=== PATIENT | male | born 1995 | race Caucasian/White ===

== ENCOUNTER 2019-06-25 10:07 | Inpatient (IN) | payer OTHER ==
[2019-06-25] MEDS ORDERED: ONDANSETRON HCL INJ/PF 4 MG/2 ML SDV IV ONE ×2 (10:23→13:17)
[2019-06-25] MEDS ORDERED: NORMAL SALINE 1000 ML 1,000 ML IV ONE (10:23)
--- NOTE | 2019-06-25 10:24 | ER Document Report ---
ED Medical Screen (RME) - General Chief Complaint: Bloody Stools Stated Complaint: BLOODY STOOLS Time Seen by Provider: 06/25/19 10:20 Primary Care Provider: MOSES TOLEDO DO [Primary Care Provider] - Follow up as needed - HPI Notes: 06/25/19 10:23 Patient is a 24-year-old male no significant past medical history who presents complaining of having light red blood in his stool since April with inte rmittent nausea, fevers, and abdominal pains. Patient states that he has some rectal discomfort, but no sharp pain in that area. Patient has never been seen for this yet. He does have some fatigue associated. Denies drug allergies. I have treated and performed a rapid initial assessment of this patient. A comprehensive ED assessment and evaluation of the patient, analysis of test results and completion of medical decision making process will be conducted by additional ED providers. PHYSICAL EXAMINATION: GENERAL: Well-appearing, well-nourished and in no acute distress. A&Ox4. Answers questions appropriately. Heart: Patient is tachycardic upon assessment otherwise RRR Abdomen: Limited exam, mild tenderness noted to the mid abdomen. - Related Data Allergies/Adverse Reactions: No Known Allergies Allergy (Verified 06/25/19 10:18) Physical Exam - Vital signs Vitals: Temp Pulse Resp BP Pulse Ox 99 F 135 H 18 127/75 H 95 06/25/19 10:06/25/19 10:06/25/19 10:06/25/19 10:09 06/25/19 10:09 Course - Vital Signs Vital signs: Temp Pulse Resp BP Pulse Ox 99 F 135 H 18 127/75 H 95 06/25/19 10:06/25/19 10:06/25/19 10:06/25/19 10:06/25/19 10:09 Doctor's Discharge - Discharge Referrals: MOSES TOLEDO DO [Primary Care Provider] - Follow up as needed
[2019-06-25 11:00] LABS: HEMATOCRIT 37.5 % (37.9-51.0); HEMOGLOBIN 13.8 g/dL (13.5-17.0); MEAN CORPUSCULAR HEMOGLOBIN 31.6 pg (27.0-33.4); MEAN CORPUSCULAR HGB CONC 36.9 g/dL (32.0-36.0); MEAN CORPUSCULAR VOLUME 86 fl (80-97); PLATELET COUNT 549 10^3/uL (150-450); RED BLOOD COUNT 4.37 10^6/uL (4.35-5.55); RED CELL DISTRIBUTION WIDTH 12.6 % (11.5-14.0); WHITE BLOOD COUNT 24.5 10^3/uL (4.0-10.5)
[2019-06-25 11:07] LABS: APPEARANCE,URINE SLIGHTLY-CLOUDY; BILIRUBIN,URINE SMALL (NEGATIVE); COLOR,URINE AMBER; GLUCOSE, URINE NEGATIVE (NEGATIVE); KETONES,URINE 20 mg/dL (NEGATIVE); PROTEIN,URINE 100 mg/dL (NEGATIVE); URINE SPECIFIC GRAVITY 1.032
[2019-06-25 11:20] LABS: ALBUMIN 3.5 g/dL (3.5-5.0); ALKALINE PHOSPHATASE 109 U/L (38-126); ANION GAP 10 (5-19); ASPARTATE AMINO TRANSFERASE 40 U/L (17-59); BILIRUBIN,DIRECT 0.1 mg/dL (0.0-0.4); BILIRUBIN,TOTAL 1.4 mg/dL (0.2-1.3); BLOOD UREA NITROGEN 9 mg/dL (7-20); CALCIUM 8.5 mg/dL (8.4-10.2); CARBON DIOXIDE 32 mmol/L (22-30); CHLORIDE 90 mmol/L (98-107); GLUCOSE 131 mg/dL (75-110); POTASSIUM 3.7 mmol/L (3.6-5.0)
[2019-06-25 11:30] LABS: ABSOLUTE LYMPHOCYTES# (MANUAL) 2.2 10^3/uL (0.5-4.7); ABSOLUTE MONOCYTES # (MANUAL) 2.2 10^3/uL (0.1-1.4); BAND NEUTROPHILS % (MANUAL) 3 % (3-5); BASOPHILS % (MANUAL) 0 % (0-2); EOSINOPHILS % (MANUAL) 0 % (0-6); LYMPHOCYTES % (MANUAL) 9 % (13-45); MONOCYTES % (MANUAL) 9 % (3-13); SEGMENTED NEUTROPHILS % (MAN) 79 % (42-78); TOTAL CELLS COUNTED 100
[2019-06-25 11:31] LABS: PLATELET COMMENT INCREASED; RBC MORPHOLOGY COMMENT NORMO-CYTIC/CHROMIC; TOXIC GRANULATION SLIGHT; TOXIC VACUOLATION PRESENT
[2019-06-25] MEDS ORDERED: RINGERS SOLUTION,LACTATED 1,000 ML IV ONE ×2 (13:14→16:21)
[2019-06-25] MEDS ORDERED: ERTAPENEM SODIUM INJ 1 GM VIAL IV ONE (13:16)
[2019-06-25] MEDS ORDERED: MORPHINE SULFATE 10 MG/ML INJ IV ONE (13:17)
--- NOTE | 2019-06-25 13:41 | RADIOLOGY REPORT (SQ) ---
EXAM DESCRIPTION: CHEST SINGLE VIEW COMPLETED DATE/TIME: 06/25/2019 1:24 pm REASON FOR STUDY: Congested cough COMPARISON: None. FINDINGS: One-view chest AP portable upright. Clear lungs. Normal cardiomediastinal silhouette. No acute or suspicious findings. No pneumothorax . TECHNICAL DOCUMENTATION: JOB ID: [id number] Reading location - IP/workstation name: [email or web address]
--- NOTE | 2019-06-25 15:13 | ER Document Report ---
Entered by VLADIMIR DUBON SCRIBE 06/25/19 2000 Acting as scribe for:SHIRLEY SANDOVAL MD ED General - General Chief Complaint: Bloody Stools Stated Complaint: BLOODY STOOLS Time Seen by Provider: 06/25/19 10:20 Primary Care Provider: MOSES TOLEDO DO [NO LOCAL MD] - Follow up as needed Mode of Arrival: Ambulatory Information source: Patient Notes: This 24-year-old male patient presents to the emergency department today with complaints of bloody stool for a few months. Patient states since April he has had all diarrhea, approximately 5-6 times a day. Patient states for the last few days he has felt generally weak with fevers and a cough. Patient is nauseated but denies vomiting. - Related Data Allergies/Adverse Reactions: No Known Allergies Allergy (Verified 06/25/19 10:18) Past Medical History - General Information source: Patient - Social History Smoking Status: Former Smoker Cigarette use (# per day): No Frequency of alcohol use: Occasional Drug Abuse: None Lives with: Spouse/Significant other Family History: Reviewed & Not Pertinent Patient has suicidal ideation: No Patient has homicidal ideation: No - Medical History Medical History: Negative Past Surgical History: Reports: Hx Inguinal Hernia - left, repaired. Review of Systems - Review of Systems Constitutional: See HPI, Fever, Weakness EENT: No symptoms reported Cardiovascular: No symptoms reported Respiratory: See HPI, Cough Gastrointestinal: See HPI, Nausea, Rectal bleeding. denies: Abdominal pain, Vomiting Genitourinary: No symptoms reported Male Genitourinary: No symptoms reported Musculoskeletal: No symptoms reported Skin: No symptoms reported Hematologic/Lymphatic: No symptoms reported Neurological/Psychological: No symptoms reported -: Yes All other systems reviewed and negative Physical Exam - Vital signs Vitals: Temp Pulse Resp BP Pulse Ox 99 F 135 H 18 127/75 H 95 06/25/19 10:09 06/25/19 10:09 06/25/19 10:09 06/25/19 10:06/25/19 10:09 Interpretation: Tachycardic, Febrile - General General appearance: Other - Seems a little drowsy. Looks quite fatigued. In distress: Mild - HEENT Head: Normocephalic, Atraumatic Eyes: Normal Pupils: PERRL Mucous membranes: Dry Pharynx: Normal Neck: Normal - Respiratory Respiratory status: No respiratory distress Breath sounds: Nonproductive cough, Rhonchi - Cardiovascular Rhythm: Regular, Tachycardia Heart sounds: Normal auscultation Murmur: No - Abdominal Inspection: Normal Bowel sounds: Normal Tenderness: Tender - Very tender in the lower abdomen with the right more tender than the left - Rectal Tenderness: Yes Hemorrhoids: None Notes: There is about a 1 mm round hole seen in the mucosa adjacent to the anus at 7:00 in the knee-chest position. I cannot tell if this is a fistula tract or not. The digital rectal exam shows some spasm at the anal sphincter and very tender t o insert the finger past the sphincter. There was no blood or stool noted. - Back Back: Normal - Extremities General upper extremity: Normal inspection General lower extremity: Normal inspection - Neurological Neuro grossly intact: Yes - Psychological Associated symptoms: Normal affect, Normal mood - Skin Skin Temperature: Warm Skin Moisture: Dry Skin Color: Normal Course - Vital Signs Vital signs: Temp Pulse Resp BP Pulse Ox 98.4 F 135 H 17 145/88 H 95 06/25/19 15:31 06/25/19 10:09 06/25/19 17:00 06/25/19 16:00 06/25/19 17:00 - Laboratory Result Diagrams: 06/25/19 10:32 06/25/19 10:32 Laboratory results interpreted by me: 06/25/19 06/25/19 06/25/19 10:32 10:32 10:32 WBC 24.5 H Hct 37.5 L MCHC 36.9 H Plt Count 549 H Seg Neuts % (Manual) 79 H Lymphocytes % (Manual) 9 L Abs Neuts (Manual) 20.1 H Abs Monocytes (Manual) 2.2 H Sodium 132.0 L Chloride 90 L Carbon Dioxide 32 H Glucose 131 H Total Bilirubin 1.4 H Lipase 17.7 L Urine Protein 100 H Urine Ketones 20 H Urine Bilirubin SMALL H Urine Urobilinogen 4.0 H Urine Ascorbic Acid 40 H Stool for White Cells 06/25/19 15:15 WBC Hct MCHC Plt Count Seg Neuts % (Manual) Lymphocytes % (Manual) Abs Neuts (Manual) Abs Monocytes (Manual) Sodium Chloride Carbon Dioxide Glucose Total Bilirubin Lipase Urine Protein Urine Ketones Urine Bilirubin Urine Urobilinogen Urine Ascorbic Acid Stool for White Cells MANY H - Diagnostic Test Radiology reviewed: Image reviewed, Reports reviewed - CT scan with IV and oral contrast shows a diffuse colitis with moderate wall thickening throughout the length of the colon and mild adjacent inflammatory changes with fluid-filled lumen. No free air or fluid collections identified. - Consults Dr. Arango Time consulted: 17:32 Consulted provider: will come to ER Discharge - Discharge Clinical Impression: Ulcerative colitis Qualifiers: Ulcerative colitis location: unspecified ulcerative colitis location Digestive disease complication type: with rectal bleeding Qualified Code(s): K51.911 - Ulcerative colitis, unspecified with rectal bleeding Leukocytosis Qualifiers: Leukocytosis type: bandemia Qualified Code(s): D72.825 - Bandemia Condition: Stable Disposition: ADMITTED INPATIENT Admitting Provider: Conchita (Hospitalist) Unit Admitted: Medical Floor Referrals: MOSES TOLEDO DO [NO LOCAL MD] - Follow up as needed Scribe Attestation: 06/25/19 17:38 I personally performed the services described in the documentation, reviewed and edited the documentation which was dictated to the scribe in my presence, and it accurately records my words and actions. I personally performed the services described in the documentation, reviewed and edited the documentation which was dictated to the scribe in my presence, and it accurately records my words and actions.
--- NOTE | 2019-06-25 17:23 | RADIOLOGY REPORT (SQ) ---
EXAM DESCRIPTION: CT ABD/PELVIS WITH IV ORAL COMPLETED DATE/TIME: 06/25/2019 4:43 pm REASON FOR STUDY: Leukocytosis, abdominal pain, diarrhea. COMPARISON: None. TECHNIQUE: CT scan of the abdomen and pelvis performed using helical scanning technique with dynamic intravenous contrast injection. No oral contrast. Images reviewed with lung, soft tissue, and bone w indows. Reconstructed coronal and sagittal MPR images reviewed. Delayed images for evaluation of the urinary system also acquired. All images stored on PACS. All CT scanners at this facility use dose modulation, iterative reconstruction, and/or weight based d osing when appropriate to reduce radiation dose to as low as reasonably achievable (ALARA). [facility]: Dose Right [facility]: CareDose [facility]: Dose Right [facility]: Teradose 4D [facility]: Startapp CONTRAST TYPE AND DOSE: contrast/concentration: Isovue 350.00 mg/ml; Total Contrast Delivered: 94.0 ml; Total Saline Delivered: 71.0 ml RENAL FUNCTION: GFR > 60. RADIATION DOSE: CT Rad equipment meets quality standard of care and radiation dose reduction techniq ues were employed. CTDIvol: 7.9 - 10.9 mGy. DLP: 1153 mGy-cm.. LIMITATIONS: None. FINDINGS: LOWER CHEST: No significant findings. LIVER: Normal size. No enhancing masses. No dilated ducts. SPLEEN: Normal size. No focal lesions. PANCREAS: No masses identified. No significant calcifications. No adjacent inflammation or peripancre atic fluid collections. Pancreatic duct not dilated. GALLBLADDER: No calcified stones. No inflammatory changes to suggest cholecystitis. ADRENAL GLANDS: No significant masses. RIGHT KIDNEY AND URETER: No cysts identified. No solid masses identified. No calcified stones. No hyd ronephrosis or hydroureter. LEFT KIDNEY AND URETER: No cysts identified. No solid masses identified. No calcified stones. No hydr onephrosis or hydroureter. AORTA AND VESSELS: No aneurysm. No dissection. Renal arteries, SMA, celiac without significant stenos is. RETROPERITONEUM: No bulky retroperitoneal adenopathy. BOWEL AND PERITONEAL CAVITY: Moderate wall thickening throughout the length of the colon with mild ad jacent inflammatory changes and fluid filled lumen. No free air or fluid collection identified. APPENDIX: Not visualized. PELVIS: No free fluid. Unremarkable bladder. ABDOMINAL WALL: No masses. No hernias. BONES: No acute findings. OTHER: No other significant finding. IMPRESSION: Moderate wall thickening throughout the length of the colon with mild adjacent inflammat ory changes and fluid filled lumen. No free air or fluid collection identified. TECHNICAL DOCUMENTATION: JOB ID: [id number] [place]-72 Quality ID # [id number]: Final reports with documentation of one or more dose reduction techniques (e.g., Au tomated exposure control, adjustment of the mA and/or kV according to patient size, use of iterative reconstruction technique) 2010 [employer]- All Rights Reserved Reading location - IP/workstation name: [email or web address]
[2019-06-25] MEDS ORDERED: ONDANSETRON HCL INJ/PF 4 MG/2 ML SDV IV PRN (18:10)
[2019-06-25] MEDS ORDERED: PROMETHAZINE HCL INJ 25 MG/1 ML VIAL IV PRN (18:10)
[2019-06-25] MEDS ORDERED: TEMAZEPAM 15 MG CAPSULE PO PRN (18:10)
[2019-06-25] MEDS ORDERED: IPRATROPIUM/ALBUTEROL 0.5-2.5 MG/3 ML AMPUL NEB PRN (18:10)
[2019-06-25] MEDS ORDERED: MORPHINE SULFATE 10 MG/ML INJ IV PRN (18:20)
--- NOTE | 2019-06-25 18:23 | PDOC H&P ---
History of Present Illness Admission Date/PCP: 06/25/19 18:07 History of Present Illness: JAKOB GARCIA is a 24 year old male with no significant past medical history presenting to ED complaining of abdominal pain associated with bloody diarrhea, fever and chills. Patient stated that he noticed bloody bowel was 2 months ago which coincided with a new protein supplement for the diarrhea sore associated with with lower abdominal pain. He is stating that did not make too much of it, but noted noticed that his abdominal pain was getting severe and his diarrhea was not resolving. He is also endorsing fever and chills however denies any nausea or vomiting. Abdominal pain is mainly in the lower abdomen, colicky, worse with movement, no alleviating factors, is not relieved by bowel movement or eating. He has not been to [facility] however recently traveled to [place] but does not remember if anybody has similar symptoms, denies having any exotic foods or trying any food, started on new dietary supplements 2 months ago which coincided with his bloody diarrheas, he is and monogamous, denies any rashes, joint pain or joint swelling, dysuria or any just genital discharge, oral ulcers or any vision changes. He denies any personal or family history of inflammatory bowel disease. Denies any shortness of breath, chest pain, headache, vision changes, rashes, numbness, tingling, or symptoms. In ED he was found to have significant leukocytosis and CT abdomen showed d iffuse colitis. Hospitalist was consulted for admission. Social History Lives with: Spouse/Significant other Smoking Status: Former Smoker Family History Family History: Reviewed & Not Pertinent Parental Family History Reviewed: Yes Children Family History Reviewed: Yes Sibling(s) Family History Reviewed.: Yes Medication/Allergy Home Medications: No Home Medications 06/25/19 Allergies/Adverse Reactions: No Known Allergies Allergy (Verified 06/25/19 10:18) Review of Systems Review of Systems: as per hpi Physical Exam Vital Signs: Temp Pulse Resp BP Pulse Ox 98.4 F 135 H 21 H 145/88 H 94 06/25/19 15:31 06/25/19 10:09 06/25/19 18:00 06/25/19 16:00 06/25/19 18:00 Intake & Output 06/24/19 06/25/19 06/26/19 06:59 06:59 06:59 Intake Total 1999 Balance 2000 Weight 82 kg General appearance: PRESENT: mild distress Head exam: PRESENT: atraumatic, normocephalic Respiratory exam: PRESENT: clear to auscultation elijah. ABSENT: rales, rhonchi, wheezes Cardiovascular exam: PRESENT: RRR. ABSENT: diastolic murmur, rubs, systolic murmur GI/Abdominal exam: PRESENT: guarding, normal bowel sounds, soft, tenderness. ABSENT: distended, mass, organolmegaly, rebound Neurological exam: PRESENT: alert, awake, oriented to person, oriented to place, oriented to time, oriented to situation, CN II-XII grossly intact. ABSENT: motor sensory deficit Skin exam: PRESENT: dry, intact, warm. ABSENT: cyanosis, rash Results Laboratory Results: 06/25/19 10:32 06/25/19 10:32 06/25/19 06/25/19 06/25/19 10:32 10:32 10:32 WBC 24.5 H RBC 4.37 Hgb 13.8 Hct 37.5 L MCV 86 MCH 31.6 MCHC 36.9 H RDW 12.6 Plt Count 549 H Seg Neutrophils % Not Reportable Sodium 132.0 L Potassium 3.7 Chloride 90 L Carbon Dioxide 32 H Anion Gap 10 BUN 9 Creatinine 0.74 Est GFR ( Amer) > 60 Glucose 131 H Lactic Acid Calcium 8.5 Total Bilirubin 1.4 H AST 40 Alkaline Phosphatase 109 Total Protein 7.0 Albumin 3.5 Lipase 17.7 L Urine Color Urine Appearance Urine pH Ur Specific [place] Urine Protein Urine Glucose (UA) Urine Ketones Urine Blood Urine RBC (Auto) Stool for White Cells Blood Type O POSITIVE Antibody Screen NEGATIVE 06/25/19 06/25/19 06/25/19 10:32 14:08 15:15 WBC RBC Hgb Hct MCV MCH MCHC RDW Plt Count Seg Neutrophils % Sodium Potassium Chloride Carbon Dioxide Anion Gap BUN Creatinine Est GFR ( Amer) Glucose Lactic Acid 1.3 Calcium Total Bilirubin AST Alkaline Phosphatase Total Protein Albumin Lipase Urine Color MARY ELLEN Urine Appearance SLIGHTLY-CLOUDY Urine pH 5.0 Ur Specific [place] 1.032 Urine Protein 100 H Urine Glucose (UA) NEGATIVE Urine Ketones 20 H Urine Blood NEGATIVE Urine RBC (Auto) 2 Stool for White Cells MANY H Blood Type Antibody Screen Impressions: Abdomen/Pelvis CT 06/25/19 13:15 IMPRESSION: Moderate wall thickening throughout the length of the colon with mild adjacent inflammatory changes and fluid filled lumen. No free air or fluid collection identified. Assessment and Plan - Diagnosis (1) Colitis Is this a current diagnosis for this admission?: Yes Plan: Given history and presentation this could very well be ulcerative colitis, cannot rule out infectious cause. Empiric broad-spectrum IV antibiotics, stool culture, stool ova and parasites, stool WBC, blood culture, ESR, CRP, stool calprotectin, vitamin D and folic acid level. (2) Dehydration Is this a current diagnosis for this admission?: Yes Plan: Due to #1. Aggressive volume resuscitation guided by volume status. (3) Diarrhea Qualifiers: Diarrhea type: unspecified type Qualified Code(s): R19.7 - Diarrhea, unspecified Is this a current diagnosis for this admission?: Yes Plan: Due to #1. Plan as per 1. (4) Abdominal pain Qualifiers: Abdominal location: lower abdomen, unspecified Qualified Code(s): R10.30 - Lower abdominal pain, unspecified Is this a current diagnosis for this admission?: Yes Plan: Due to #1. Plan as per #1. (5) Leukocytosis Qualifiers: Leukocytosis type: bandemia Qualified Code(s): D72.825 - Bandemia Is this a current diagnosis for this admission?: Yes Plan: Due to #1. Plan as per 1.
[2019-06-25] MEDS ORDERED: HYDRALAZINE HCL INJ/PF 20 MG/1 ML SDV IV PRN (18:33)
[2019-06-25] MEDS ORDERED: METOPROLOL TARTRATE PF/INJ 5 MG/5 ML SDV IV PRN (18:33)
[2019-06-25] MEDS: METHYLPREDNISOLONE INJ 40 MG/1 ML SDV IV SCH (18:47)
[2019-06-25] MEDS: METRONIDAZOLE 500 MG/NS RTU 500 MG/100 ML RTUPB IV SCH ×5 (18:47→23:11)
[2019-06-25] MEDS: MORPHINE SULFATE 10 MG/ML INJ IV PRN ×2 (18:59→22:06)
[2019-06-25] MEDS: ACETAMINOPHEN 325 MG TABLET PO PRN (19:05)
[2019-06-25 19:47] LABS: IRON(TIBC) 18.3 ug/dL (49-181)
[2019-06-25 19:49] LABS: ABSOLUTE RETICS # 0.088 10^6/uL (0.028-0.122); RETICULOCYTE COUNT (AUTO) 1.96 % (0.66-2.85)
[2019-06-25 20:30] LABS: C DIFFICILE GDH NEGATIVE (NEGATIVE)
[2019-06-25 21:05] LABS: A TYPE INFLUENZA AG NEGATIVE (NEGATIVE); B INFLUENZA AG NEGATIVE (NEGATIVE)
[2019-06-25] MEDS: POTASSI CL 20 MEQ/D5NS 1L 20 MEQ/1,000 ML RTUINJ IV PRN (21:10)
[2019-06-26] MEDS: METHYLPREDNISOLONE INJ 40 MG/1 ML SDV IV SCH ×3 (02:02→18:17)
[2019-06-26] MEDS: MORPHINE SULFATE 10 MG/ML INJ IV PRN ×4 (05:17→22:03)
[2019-06-26] MEDS: METRONIDAZOLE 500 MG/NS RTU 500 MG/100 ML RTUPB IV SCH ×4 (05:18→23:29)
[2019-06-26] MEDS: PANTOPRAZOLE SODIUM 40 MG TABLET.DR PO SCH ×2 (05:18→18:17)
[2019-06-26] MEDS: POTASSI CL 20 MEQ/D5NS 1L 20 MEQ/1,000 ML RTUINJ IV PRN ×2 (05:23→18:27)
[2019-06-26 06:05] LABS: HEMATOCRIT 33.7 % (37.9-51.0); HEMOGLOBIN 11.9 g/dL (13.5-17.0); MEAN CORPUSCULAR HEMOGLOBIN 30.4 pg (27.0-33.4); MEAN CORPUSCULAR HGB CONC 35.4 g/dL (32.0-36.0); MEAN CORPUSCULAR VOLUME 86 fl (80-97); PLATELET COUNT 454 10^3/uL (150-450); RED BLOOD COUNT 3.93 10^6/uL (4.35-5.55); RED CELL DISTRIBUTION WIDTH 12.6 % (11.5-14.0); WHITE BLOOD COUNT 16.8 10^3/uL (4.0-10.5)
[2019-06-26 06:28] LABS: ALBUMIN 2.6 g/dL (3.5-5.0); ALKALINE PHOSPHATASE 81 U/L (38-126); ANION GAP 6 (5-19); ASPARTATE AMINO TRANSFERASE 30 U/L (17-59); BILIRUBIN,DIRECT 0.1 mg/dL (0.0-0.4); BILIRUBIN,TOTAL 0.6 mg/dL (0.2-1.3); BLOOD UREA NITROGEN 6 mg/dL (7-20); CALCIUM 7.6 mg/dL (8.4-10.2); CARBON DIOXIDE 30 mmol/L (22-30); CHLORIDE 99 mmol/L (98-107); GLUCOSE 175 mg/dL (75-110); POTASSIUM 4.1 mmol/L (3.6-5.0); TOTAL PROTEIN 5.7 g/dL (6.3-8.2)
[2019-06-26] MEDS: FERROUS SULFATE 325 MG TABLET PO SCH (10:25)
[2019-06-26] MEDS: CHOLECALCIFEROL (D3) 1,000 UNIT (25 MCG) TABLET PO SCH (10:25)
[2019-06-26] MEDS: CEFTRIAXONE 2 GM/D5W RTU 2 GM/50 ML RTUPB IV SCH (10:26)
--- NOTE | 2019-06-26 10:43 | PDOC PROGRESS REPORT ---
Subjective Progress Note for:: 06/26/19 - ' Subjective:: JAKOB GARCIA is a 24 year old male with no significant past medical history presenting to ED complaining of abdominal pain associated with bloody diarrhea, fever and chills. Patient stated that he noticed bloody bowel was 2 months ago which coincided with a new protein supplement for the diarrhea sore associated with with lower abdominal pain. He is stating that did not make too much of it, but noted noticed that his abdominal pain was getting severe and his diarrhea was not resolving. He is also endorsing fever and chills however denies any nausea or vomiting. Abdominal pain is mainly in the lower abdomen, colicky, worse with movement, no alleviating factors, is not relieved by bowel movement or eating. He has not been to [facility] however recently traveled to [place] but does not remember if anybody has similar symptoms, denies having any exotic foods or trying any food, started on new dietary supplements 2 months ago which coincided with his bloody diarrheas, he is and monogamous, denies any rashes, joint pain or joint swelling, dysuria or any just genital discharge, oral ulcers or any vision changes. He denies any personal or family history of inflammatory bowel disease. Denies any shortness of breath, chest pain, headache, vision changes, rashes, numbness, tingling, or symptoms. In ED he was found to have significant leukocytosis and CT abdomen showed diffuse colitis. Hospitalist was consulted for admission. 06/26/2019. No acute events overnight. Patient endorsing some improvement of his abdominal pain, still having bloody diarrhea, denies any chest pain, nausea, vomiting, fever or any shortness of breath. Reason For Visit: COLITIS,DEHYDRATION Physical Exam Vital Signs: Temp Pulse Resp BP Pulse Ox 97.7 F 107 H 18 151/84 H 95 06/26/19 08:06 06/26/19 08:06 06/26/19 08:06 06/26/19 08:06 06/26/19 08:06 Intake & Output 06/25/19 06/26/19 06/27/19 06:59 06:59 06:59 Intake Total 4300 Balance 4300 Weight 84.1 kg General appearance: PRESENT: no acute distress, well-developed, well-nourished Head exam: PRESENT: atraumatic, normocephalic Respiratory exam: PRESENT: clear to auscultation elijah. ABSENT: rales, rhonchi, wheezes Cardiovascular exam: PRESENT: RRR. ABSENT: diastolic murmur, rubs, systolic murmur GI/Abdominal exam: PRESENT: normal bowel sounds, soft, tenderness. ABSENT: distended, guarding, mass, organolmegaly, rebound Neurological exam: PRESENT: alert, awake, oriented to person, oriented to place, oriented to time, oriented to situation, CN II-XII grossly intact. ABSENT: motor sensory deficit Results Laboratory Results: 06/26/19 05:11 06/26/19 05:11 06/25/19 06/25/19 06/25/19 10:32 10:32 10:32 WBC 24.5 H RBC 4.37 Hgb 13.8 Hct 37.5 L MCV 86 MCH 31.6 MCHC 36.9 H RDW 12.6 Plt Count 549 H Seg Neutrophils % Not Reportable Retic Count (auto) Sodium 132.0 L Potassium 3.7 Chloride 90 L Carbon Dioxide 32 H Anion Gap 10 BUN 9 Creatinine 0.74 Est GFR ( Amer) > 60 Glucose 131 H Lactic Acid Calcium 8.5 Magnesium Iron TIBC % Saturation Ferritin Total Bilirubin 1.4 H AST 40 Alkaline Phosphatase 109 C-Reactive Protein Total Protein 7.0 Albumin 3.5 Lipase 17.7 L Vitamin B12 Folate TSH Urine Color Urine Appearance Urine pH Ur Specific [place] Urine Protein Urine Glucose (UA) Urine Ketones Urine Blood Urine RBC (Auto) Stool for White Cells Blood Type O POSITIVE Antibody Screen NEGATIVE 06/25/19 06/25/19 06/25/19 10:32 10:32 10:32 WBC RBC Hgb Hct MCV MCH MCHC RDW Plt Count Seg Neutrophils % Retic Count (auto) 1.96 Sodium Potassium Chloride Carbon Dioxide Anion Gap BUN Creatinine Est GFR ( Amer) Glucose Lactic Acid Calcium Magnesium Iron TIBC % Saturation Ferritin Total Bilirubin AST Alkaline Phosphatase C-Reactive Protein 74.0 H Total Protein Albumin Lipase Vitamin B12 Folate TSH Urine Color MARY ELLEN Urine Appearance SLIGHTLY-CLOUDY Urine pH 5.0 Ur Specific [place] 1.032 Urine Protein 100 H Urine Glucose (UA) NEGATIVE Urine Ketones 20 H Urine Blood NEGATIVE Urine RBC (Auto) 2 Stool for White Cells Blood Type Antibody Screen 06/25/19 06/25/19 06/25/19 10:32 14:08 15:15 WBC RBC Hgb Hct MCV MCH MCHC RDW Plt Count Seg Neutrophils % Retic Count (auto) Sodium Potassium Chloride Carbon Dioxide Anion Gap BUN Creatinine Est GFR ( Amer) Glucose Lactic Acid 1.3 Calcium Magnesium Iron 18.3 L TIBC 183 L % Saturation 10 Ferritin 221.00 Total Bilirubin AST Alkaline Phosphatase C-Reactive Protein Total Protein Albumin Lipase Vitamin B12 958.0 H Folate 18.30 TSH Urine Color Urine Appearance Urine pH Ur Specific [place] Urine Protein Urine Glucose (UA) Urine Ketones Urine Blood Urine RBC (Auto) Stool for White Cells MANY H Blood Type Antibody Screen 06/25/19 06/26/19 06/26/19 15:15 05:11 05:11 WBC 16.8 H RBC 3.93 L Hgb 11.9 L Hct 33.7 L MCV 86 MCH 30.4 MCHC 35.4 RDW 12.6 Plt Count 454 H Seg Neutrophils % Retic Count (auto) Sodium 135.4 L Potassium 4.1 Chloride 99 Carbon Dioxide 30 Anion Gap 6 BUN 6 L Creatinine 0.49 L Est GFR ( Amer) > 60 Glucose 175 H Lactic Acid Calcium 7.6 L Magnesium 2.4 H Iron TIBC % Saturation Ferritin Total Bilirubin 0.6 AST 30 Alkaline Phosphatase 81 C-Reactive Protein Total Protein 5.7 L Albumin 2.6 L Lipase Vitamin B12 Folate TSH Urine Color Urine Appearance Urine pH Ur Specific [place] Urine Protein Urine Glucose (UA) Urine Ketones Urine Blood Urine RBC (Auto) Stool for White Cells Cancelled Blood Type Antibody Screen 06/26/19 05:11 WBC RBC Hgb Hct MCV MCH MCHC RDW Plt Count Seg Neutrophils % Retic Count (auto) Sodium Potassium Chloride Carbon Dioxide Anion Gap BUN Creatinine Est GFR ( Amer) Glucose Lactic Acid Calcium Magnesium Iron TIBC % Saturation Ferritin Total Bilirubin AST Alkaline Phosphatase C-Reactive Protein Total Protein Albumin Lipase Vitamin B12 Folate TSH 0.71 Urine Color Urine Appearance Urine pH Ur Specific [place] Urine Protein Urine Glucose (UA) Urine Ketones Urine Blood Urine RBC (Auto) Stool for White Cells Blood Type Antibody Screen Impressions: Abdomen/Pelvis CT 06/25/19 13:15 IMPRESSION: Moderate wall thickening throughout the length of the colon with mild adjacent inflammatory changes and fluid filled lumen. No free air or fluid collection identified. Assessment and Plan - Diagnosis (1) Colitis Is this a current diagnosis for this admission?: Yes Plan: Mild improvement. Still having bloody diarrhea. Given history and presentation this could very well be ulcerative colitis, cannot rule out infectious cause. ESR 54. CRP 74. B12 958. Vitamin D less than 12.8. Stool white blood cells many. Stool occult positive. C. difficile negative. HIV negative. Influenza A/B negative. Day 2 IV antibiotics. Day 2 IV metronidazole. Day 2 IV ceftriaxone. Day 2 IV steroids. Pending stool culture, stool ova and parasites, blood culture, stool calprotectin (2) Dehydration Is this a current diagnosis for this admission?: Yes Plan: Appears euvolemic. Continue volume resuscitation guided by volume status. (3) Diarrhea Qualifiers: Diarrhea type: unspecified type Qualified Code(s): R19.7 - Diarrhea, unspecified Is this a current diagnosis for this admission?: Yes Plan: Mild improvement. Plan as per #1. (4) Abdominal pain Qualifiers: Abdominal location: lower abdomen, unspecified Qualified Code(s): R10.30 - Lower abdominal pain, unspecified Is this a current diagnosis for this admission?: Yes Plan: Improving. Plan as per #1. (5) Leukocytosis Qualifiers: Leukocytosis type: bandemia Qualified Code(s): D72.825 - Bandemia Is this a current diagnosis for this admission?: Yes Plan: Due to #1. Plan as per 1.
[2019-06-27] MEDS: METHYLPREDNISOLONE INJ 40 MG/1 ML SDV IV SCH ×3 (01:08→17:46)
[2019-06-27] MEDS: PANTOPRAZOLE SODIUM 40 MG TABLET.DR PO SCH ×2 (05:30→17:46)
[2019-06-27] MEDS: METRONIDAZOLE 500 MG/NS RTU 500 MG/100 ML RTUPB IV SCH ×4 (05:31→23:05)
[2019-06-27] MEDS: POTASSI CL 20 MEQ/D5NS 1L 20 MEQ/1,000 ML RTUINJ IV PRN ×2 (05:31→15:38)
[2019-06-27] MEDS: MORPHINE SULFATE 10 MG/ML INJ IV PRN ×4 (05:35→23:05)
[2019-06-27 06:20] LABS: HEMOGLOBIN 13.4 g/dL (13.5-17.0); MEAN CORPUSCULAR HEMOGLOBIN 30.4 pg (27.0-33.4); MEAN CORPUSCULAR HGB CONC 35.2 g/dL (32.0-36.0); MEAN CORPUSCULAR VOLUME 87 fl (80-97); PLATELET COUNT 596 10^3/uL (150-450); RED BLOOD COUNT 4.39 10^6/uL (4.35-5.55); RED CELL DISTRIBUTION WIDTH 12.4 % (11.5-14.0); WHITE BLOOD COUNT 20.6 10^3/uL (4.0-10.5)
[2019-06-27 06:37] LABS: ANION GAP 8 (5-19); BLOOD UREA NITROGEN 7 mg/dL (7-20); CALCIUM 8.4 mg/dL (8.4-10.2); CARBON DIOXIDE 28 mmol/L (22-30); CHLORIDE 102 mmol/L (98-107); GLUCOSE 145 mg/dL (75-110); POTASSIUM 4.6 mmol/L (3.6-5.0)
[2019-06-27] MEDS: FERROUS SULFATE 325 MG TABLET PO SCH (10:23)
[2019-06-27] MEDS: CHOLECALCIFEROL (D3) 1,000 UNIT (25 MCG) TABLET PO SCH (10:24)
[2019-06-27] MEDS: CEFTRIAXONE 2 GM/D5W RTU 2 GM/50 ML RTUPB IV SCH (10:25)
--- NOTE | 2019-06-27 11:09 | PDOC PROGRESS REPORT ---
Subjective Progress Note for:: 06/27/19 Subjective:: JAKOB GARCIA is a 24 year old male with no significant past medical history presenting to ED complaining of abdominal pain associated with bloody diarrhea, fever and chills. Patient stated that he noticed bloody bowel was 2 months ago which coincided with a new protein supplement for the diarrhea sore associated with with lower abdominal pain. He is stating that did not make too much of it, but noted noticed that his abdominal pain was getting severe and his diarrhea was not resolving. He is also endorsing fever and chills however denies any nausea or vomiting. Abdominal pain is mainly in the lower abdomen, colicky, worse with movement, no alleviating factors, is not relieved by bowel movement or eating. He has not been to [facility] however recently traveled to [place] but does not remember if anybody has similar symptoms, denies having any exotic foods or trying any food, started on new dietary supplements 2 months ago which coincided with his bloody diarrheas, he is and monogamous, denies any rashes, joint pain or joint swelling, dysuria or any just genital discharge, oral ulcers or any vision changes. He denies any personal or family history of inflammatory bowel disease. Denies any shortness of breath, chest pain, headache, vision changes, rashes, numbness, tingling, or symptoms. In ED he was found to have significant leukocytosis and CT abdomen showed diffuse colitis. Hospitalist was consulted for admission. 06/26/2019. No acute events overnight. Patient endorsing some improvement of his abdominal pain, still having bloody diarrhea, denies any chest pain, nausea, vomiting, fever or any shortness of breath. 06/27/2019. Silk persistent diarrhea however improved since admission, abdominal pain has resolved, p.o. tolerant, denies any fever, chills, nausea, vomiting, urinary symptoms. Reason For Visit: COLITIS,DEHYDRATION Physical Exam Vital Signs: Temp Pulse Resp BP Pulse Ox 98.0 F 98 16 133/85 H 96 06/27/19 09:14 06/27/19 09:14 06/27/19 09:14 06/27/19 09:14 06/27/19 09:14 Intake & Output 06/26/19 06/27/19 06/28/19 06:59 06:59 06:59 Intake Total 4300 3860 Balance 4300 3860 Weight 84.1 kg 88.8 kg General appearance: PRESENT: no acute distress, well-developed, well-nourished Head exam: PRESENT: atraumatic, normocephalic Respiratory exam: PRESENT: clear to auscultation elijah. ABSENT: rales, rhonchi, wheezes Cardiovascular exam: PRESENT: RRR. ABSENT: diastolic murmur, rubs, systolic murmur GI/Abdominal exam: PRESENT: normal bowel sounds, soft. ABSENT: distended, guarding, mass, organolmegaly, rebound, tenderness Extremities exam: PRESENT: full ROM. ABSENT: calf tenderness, clubbing, pedal edema Neurological exam: PRESENT: alert, awake, oriented to person, oriented to place, oriented to time, oriented to situation, CN II-XII grossly intact. ABSENT: motor sensory deficit Results Laboratory Results: 06/27/19 05:31 06/27/19 05:31 06/27/19 06/27/19 05:31 05:31 WBC 20.6 H RBC 4.39 Hgb 13.4 L Hct 38.0 MCV 87 MCH 30.4 MCHC 35.2 RDW 12.4 Plt Count 596 H Sodium 137.5 Potassium 4.6 Chloride 102 Carbon Dioxide 28 Anion Gap 8 BUN 7 Creatinine 0.53 Est GFR ( Amer) > 60 Glucose 145 H Calcium 8.4 06/25/19 10:27 Clean Catch Midstream Urine Culture - Final NO GROWTH 2 DAYS 06/25/19 15:15 Stool - Stool - Final 06/25/19 15:15 Stool - Stool Stool Culture - Final NO SALMONELLA, SHIGELLA, CAMPYLOBACTER, OR E.COLI 0157 RECOVERED. NEGATIVE FOR SHIGA TOXINS 1&2. Impressions: Abdomen/Pelvis CT 06/25/19 13:15 IMPRESSION: Moderate wall thickening throughout the length of the colon with mild adjacent inflammatory changes and fluid filled lumen. No free air or fluid collection identified. Assessment and Plan - Diagnosis (1) Colitis Is this a current diagnosis for this admission?: Yes Plan: Moderate improvement. Still having bloody diarrhea. Given history and presentation this could very well be ulcerative colitis, cannot rule out infectious cause. ESR 54. CRP 74. B12 958. Vitamin D less than 12.8. Stool white blood cells many. Stool occult positive. C. difficile negative. HIV negative. Influenza A/B negative. Day 3 IV antibiotics. Day 3 IV metronidazole. Day 3 IV ceftriaxone. Day 3 IV steroids. Pending stool culture, stool ova and parasites, blood culture, stool calprotectin (2) Dehydration Is this a current diagnosis for this admission?: Yes Plan: Volume replete. Encourage p.o. intake. Continue volume resuscitation guided by volume status. (3) Diarrhea Qualifiers: Diarrhea type: unspecified type Qualified Code(s): R19.7 - Diarrhea, unspecified Is this a current diagnosis for this admission?: Yes Plan: Mild improvement. Plan as per #1. (4) Abdominal pain Qualifiers: Abdominal location: lower abdomen, unspecified Qualified Code(s): R10.30 - Lower abdominal pain, unspecified Is this a current diagnosis for this admission?: Yes Plan: Improving. Plan as per #1. (5) Leukocytosis Qualifiers: Leukocytosis type: bandemia Qualified Code(s): D72.825 - Bandemia Is this a current diagnosis for this admission?: Yes Plan: Due to #1. Plan as per 1.
[2019-06-28] MEDS: ACETAMINOPHEN 325 MG TABLET PO PRN ×2 (01:51→08:16)
[2019-06-28] MEDS: POTASSI CL 20 MEQ/D5NS 1L 20 MEQ/1,000 ML RTUINJ IV PRN (01:51)
[2019-06-28] MEDS: METHYLPREDNISOLONE INJ 40 MG/1 ML SDV IV SCH ×2 (01:51→10:02)
[2019-06-28] MEDS: MORPHINE SULFATE 10 MG/ML INJ IV PRN ×2 (04:05→10:00)
[2019-06-28] MEDS: METRONIDAZOLE 500 MG/NS RTU 500 MG/100 ML RTUPB IV SCH ×2 (05:37→11:29)
[2019-06-28] MEDS: PANTOPRAZOLE SODIUM 40 MG TABLET.DR PO SCH (05:37)
[2019-06-28 05:45] LABS: HEMATOCRIT 30.4 % (37.9-51.0); MEAN CORPUSCULAR HEMOGLOBIN 30.7 pg (27.0-33.4); MEAN CORPUSCULAR HGB CONC 35.3 g/dL (32.0-36.0); MEAN CORPUSCULAR VOLUME 87 fl (80-97); PLATELET COUNT 558 10^3/uL (150-450); RED CELL DISTRIBUTION WIDTH 12.6 % (11.5-14.0)
[2019-06-28 05:52] LABS: HEMOGLOBIN 10.7 g/dL (13.5-17.0)
[2019-06-28 06:03] LABS: ALBUMIN 2.3 g/dL (3.5-5.0); ALKALINE PHOSPHATASE 71 U/L (38-126); ANION GAP 6 (5-19); ASPARTATE AMINO TRANSFERASE 66 U/L (17-59); BILIRUBIN,TOTAL 0.2 mg/dL (0.2-1.3); BLOOD UREA NITROGEN 8 mg/dL (7-20); CALCIUM 7.2 mg/dL (8.4-10.2); CARBON DIOXIDE 26 mmol/L (22-30); CHLORIDE 104 mmol/L (98-107); GLUCOSE 135 mg/dL (75-110); TOTAL PROTEIN 4.8 g/dL (6.3-8.2)
[2019-06-28 06:51] LABS: ABSOLUTE LYMPHOCYTES# (MANUAL) 0.9 10^3/uL (0.5-4.7); ABSOLUTE MONOCYTES # (MANUAL) 1.5 10^3/uL (0.1-1.4); BAND NEUTROPHILS % (MANUAL) 4 % (3-5); BASOPHILS % (MANUAL) 0 % (0-2); EOSINOPHILS % (MANUAL) 0 % (0-6); LYMPHOCYTES % (MANUAL) 6 % (13-45); MONOCYTES % (MANUAL) 10 % (3-13); SEGMENTED NEUTROPHILS % (MAN) 80 % (42-78); TOTAL CELLS COUNTED 100
[2019-06-28 06:53] LABS: OVALOCYTES SLIGHT; PLATELET COMMENT INCREASED; POLYCHROMASIA SLIGHT
[2019-06-28] MEDS: CHOLECALCIFEROL (D3) 1,000 UNIT (25 MCG) TABLET PO SCH (09:59)
[2019-06-28] MEDS: FERROUS SULFATE 325 MG TABLET PO SCH (10:00)
[2019-06-28] MEDS: CEFTRIAXONE 2 GM/D5W RTU 2 GM/50 ML RTUPB IV SCH (10:01)
[2019-06-28 10:17] VITALS: BP 138/77
--- NOTE | 2019-06-28 17:40 | PDOC DISCHARGE SUMMARY ---
Impression - Admit/DC Date/PCP Admission Date/Primary Care Provider: 06/25/19 18:07 Discharge Date: 06/28/19 - Discharge Diagnosis (1) Colitis Is this a current diagnosis for this admission?: Yes (2) Dehydration Is this a current diagnosis for this admission?: Yes (3) Diarrhea Is this a current diagnosis for this admission?: Yes (4) Abdominal pain Is this a current diagnosis for this admission?: Yes (5) Leukocytosis Is this a current diagnosis for this admission?: Yes - Additional Information Discharge Diet: As Tolerated Referrals: MOSES TOLEDO DO [NO LOCAL MD] - 07/08/19 4:00 pm Prescriptions: Prednisone [Deltasone 5 mg Tablet] 5 mg PO DAILY 74 Days #148 tablet Ferrous Sulfate [Feosol 325 mg Tablet] 325 mg PO DAILY 30 Days #30 tab Metronidazole [Flagyl 500 mg Tablet] 500 mg PO Q8 5 Days #15 tablet Levofloxacin [Levaquin 500 mg Tablet] 500 mg PO DAILY 5 Days #5 tablet Magnesium Oxide [Mag-Oxide Magnesium] 400 mg PO DAILY 7 Days #14 tablet Potassium Chloride 40 meq PO DAILY 7 Days #14 tablet.er Cholecalciferol (Vitamin D3) [Vitamin D3] 2,000 unit PO DAILY 30 Days #30 tablet Home Medications: Cholecalciferol (Vitamin D3) [Vitamin D3] 2,000 unit PO DAILY 30 Days #30 tablet 06/28/19 Ferrous Sulfate [Feosol 325 mg Tablet] 325 mg PO DAILY 30 Days #30 tab 06/28/19 Levofloxacin [Levaquin 500 mg Tablet] 500 mg PO DAILY 5 Days #5 tablet 06/28/19 Magnesium Oxide [Mag-Oxide Magnesium] 400 mg PO DAILY 7 Days #14 tablet 06/28/19 Metronidazole [Flagyl 500 mg Tablet] 500 mg PO Q8 5 Days #15 tablet 06/28/19 Potassium Chloride 40 meq PO DAILY 7 Days #14 tablet.er 06/28/19 Prednisone [Deltasone 5 mg Tablet] 5 mg PO DAILY 74 Days #148 tablet 06/28/19 History of Present Illiness History of Present Illness: JAKOB GARCIA is a 24 year old male with no significant past medical history presenting to ED complaining of abdominal pain associated with bloody diarrhea, fever and chills. Patient stated that he noticed bloody bowel was 2 months ago which coincided with a new protein supplement for the diarrhea sore associated with with lower abdominal pain. He is stating that did not make too much of it, but noted noticed that his abdominal pain was getting severe and his diarrhea was not resolving. He is also endorsing fever and chills however denies any nausea or vomiting. Abdominal pain is mainly in the lower abdomen, colicky, worse with movement, no alleviating factors, is not relieved by bowel movement or eating. He has not been to [facility] however recently traveled to [place] but does not remember if anybody has similar symptoms, denies having any exotic foods or trying any food, started on new dietary supplements 2 months ago which coincided with his bloody diarrheas, he is and monogamous, denies any rashes, joint pain or joint swelling, dysuria or any just genital discharge, oral ulcers or any vision changes. He denies any personal or family history of inflammatory bowel disease. Denies any shortness of breath, chest pain, headache, vision changes, rashes, numbness, tingling, or symptoms. In ED he was found to have significant leukocytosis and CT abdomen showed diffuse colitis. Hospitalist was consulted for admission. Hospital Course Hospital Course: (1) Colitis Moderate improvement. Abdominal pain resolved. Had one bowel movement in the last 24 hours. Given history and presentation this could very well be ulcerative colitis, cannot rule out infectious cause. ESR 54. CRP 74. B12 958. Vitamin D less than 12.8. Stool white blood cells many. Stool occult positive. C. difficile negative. HIV negative. Influenza A/B negative. Stool culture negative. Ova and parasite negative. Received 4 days of IV antibiotics. Received 4 days of IV metronidazole. Received 4 days of IV ceftriaxone. Received 4 days of IV steroids. Cultures negative. Pending stool calprotectin Discharged on p.o. metronidazole and levofloxacin for another 5 days. Discharge on a tapered dose of p.o. steroids. Discharged on supplemental vitamin D and ferrous sulfate. 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 Patient was advised if his symptoms did not resolve to come back to ED. (2) Dehydration Volume replete. Encourage p.o. intake. Continue volume resuscitation guided by volume status. (3) Diarrhea Moderate improvement had one bowel movement the last 24 hours. Plan as per #1. (4) Abdominal pain Resolved. Plan as per #1. (5) Leukocytosis Improved. However patient still had leukocytosis which could be due to IV steroids. Afebrile at the time of discharge. Plan as per 1. Patient was advised to stay another day given his leukocytosis but very anxious to leave. Patient was advised to come back to ED if he becomes symptomatic. Physical Exam Vital Signs: Temp Pulse Resp BP Pulse Ox 97.6 F 89 12 138/77 H 95 06/28/19 14:27 06/28/19 14:27 06/28/19 14:27 06/28/19 14:27 06/28/19 14:27 Intake & Output 06/27/19 06/28/19 06/29/19 06:59 06:59 06:59 Intake Total 3860 4076 1390 Balance 3860 4076 1390 Weight 88.8 kg 90.1 kg General appearance: PRESENT: no acute distress, well-developed, well-nourished Head exam: PRESENT: atraumatic, normocephalic Respiratory exam: PRESENT: clear to auscultation elijah. ABSENT: rales, rhonchi, wheezes Cardiovascular exam: PRESENT: RRR. ABSENT: diastolic murmur, rubs, systolic murmur GI/Abdominal exam: PRESENT: normal bowel sounds, soft. ABSENT: distended, guarding, mass, organolmegaly, rebound, tenderness Neurological exam: PRESENT: alert, awake, oriented to person, oriented to place, oriented to time, oriented to situation, CN II-XII grossly intact. ABSENT: motor sensory deficit Results Laboratory Results: WBC 15.0 10^3/uL (4.0-10.5) H 06/28/19 04:56 RBC 3.50 10^6/uL (4.35-5.55) L 06/28/19 04:56 Hgb 10.7 g/dL (13.5-17.0) L D 06/28/19 04:56 Hct 30.4 % (37.9-51.0) L 06/28/19 04:56 MCV 87 fl (80-97) 06/28/19 04:56 MCH 30.7 pg (27.0-33.4) 06/28/19 04:56 MCHC 35.3 g/dL (32.0-36.0) 06/28/19 04:56 RDW 12.6 % (11.5-14.0) 06/28/19 04:56 Plt Count 558 10^3/uL (150-450) H 06/28/19 04:56 Lymph % (Auto) Not Reportable 06/28/19 04:56 [place] % (Auto) Not Reportable 06/28/19 04:56 Eos % (Auto) Not Reportable 06/28/19 04:56 Baso % (Auto) Not Reportable 06/28/19 04:56 Reticulocyte # 0.088 10^6/uL (0.028-0.122) 06/25/19 10:32 Absolute Neuts (auto) Not Reportable 06/28/19 04:56 Absolute Lymphs (auto) Not Reportable 06/28/19 04:56 Absolute Monos (auto) Not Reportable 06/28/19 04:56 Absolute Eos (auto) Not Reportable 06/28/19 04:56 Absolute Basos (auto) Not Reportable 06/28/19 04:56 Total Counted 100 06/28/19 04:56 Seg Neutrophils % Not Reportable 06/28/19 04:56 Seg Neuts % (Manual) 80 % (42-78) H 06/28/19 04:56 Band Neutrophils % 4 % (3-5) 06/28/19 04:56 Lymphocytes % (Manual) 6 % (13-45) L 06/28/19 04:56 Monocytes % (Manual) 10 % (3-13) 06/28/19 04:56 Eosinophils % (Manual) 0 % (0-6) 06/28/19 04:56 Basophils % (Manual) 0 % (0-2) 06/28/19 04:56 Abs Neuts (Manual) 12.6 10^3/uL (1.7-8.2) H 06/28/19 04:56 Abs Lymphs (Manual) 0.9 10^3/uL (0.5-4.7) 06/28/19 04:56 Abs Monocytes (Manual) 1.5 10^3/uL (0.1-1.4) H 06/28/19 04:56 Absolute Eos (Manual) 0.0 10^3/uL (0.0-0.6) 06/28/19 04:56 Abs Basophils (Manual) 0.0 10^3/uL (0.0-0.2) 06/28/19 04:56 Toxic Granulation SLIGHT 06/25/19 10:32 Toxic Vacuolation PRESENT 06/25/19 10:32 Dohle Bodies PRESENT 06/28/19 04:56 Platelet Comment INCREASED 06/28/19 04:56 Polychromasia SLIGHT 06/28/19 04:56 Ovalocytes SLIGHT 06/28/19 04:56 RBC Morph Comment NORMO-CYTIC/CHROMIC 06/25/19 10:32 ESR 54 mm/hr (0-15) H 06/25/19 20:07 Retic Count (auto) 1.96 % (0.66-2.85) 06/25/19 10:32 Sodium 135.6 mmol/L (137-145) L 06/28/19 04:56 Potassium 4.0 mmol/L (3.6-5.0) 06/28/19 04:56 Chloride 104 mmol/L (98-107) 06/28/19 04:56 Carbon Dioxide 26 mmol/L (22-30) 06/28/19 04:56 Anion Gap 6 (5-19) 06/28/19 04:56 BUN 8 mg/dL (7-20) 06/28/19 04:56 Creatinine 0.51 mg/dL (0.52-1.25) L 06/28/19 04:56 Est GFR ( Amer) > 60 (>60) 06/28/19 04:56 Est GFR (MDRD) Non-Af > 60 (>60) 06/28/19 04:56 Glucose 135 mg/dL (75-110) H 06/28/19 04:56 Hemoglobin A1c % 4.7 % (4.7-6.0) 06/26/19 05:11 Lactic Acid 1.3 mmol/L (0.7-2.1) 06/25/19 14:08 Calcium 7.2 mg/dL (8.4-10.2) L 06/28/19 04:56 Magnesium 2.3 mg/dL (1.6-2.3) 06/28/19 04:56 Iron 18.3 ug/dL (49-181) L 06/25/19 10:32 TIBC 183 ug/dL (250-450) L 06/25/19 10:32 % Saturation 10 % 06/25/19 10:32 Ferritin 221.00 ng/mL (17.9-464.0) 06/25/19 10:32 Total Bilirubin 0.2 mg/dL (0.2-1.3) 06/28/19 04:56 Direct Bilirubin 0.0 mg/dL (0.0-0.4) 06/28/19 04:56 Neonat Total Bilirubin Not Reportable 06/28/19 04:56 Neonat Direct Bilirubin Not Reportable 06/28/19 04:56 Neonat Indirect Bili Not Reportable 06/28/19 04:56 AST 66 U/L (17-59) H 06/28/19 04:56 ALT 74 U/L (<50) H 06/28/19 04:56 Alkaline Phosphatase 71 U/L (38-126) 06/28/19 04:56 C-Reactive Protein 74.0 mg/L (<10.0) H 06/25/19 10:32 Total Protein 4.8 g/dL (6.3-8.2) L 06/28/19 04:56 Albumin 2.3 g/dL (3.5-5.0) L 06/28/19 04:56 Lipase 17.7 U/L (23-300) L 06/25/19 10:32 Vitamin B12 958.0 pg/mL (239-931) H 06/25/19 10:32 Vitamin D 25-Hydroxy < 12.8 ng/mL (14.7-68.3) L 06/25/19 10:32 Folate 18.30 ng/mL (>2.76) 06/25/19 10:32 TSH 0.71 uIU/mL (0.47-4.68) 06/26/19 05:11 Urine Color MARY ELLEN 06/25/19 10:32 Urine Appearance SLIGHTLY-CLOUDY 06/25/19 10:32 Urine pH 5.0 (5.0-9.0) 06/25/19 10:32 Ur Specific [place] 1.032 06/25/19 10:32 Urine Protein 100 mg/dL (NEGATIVE) H 06/25/19 10:32 Urine Glucose (UA) NEGATIVE mg/dL (NEGATIVE) 06/25/19 10:32 Urine Ketones 20 mg/dL (NEGATIVE) H 06/25/19 10:32 Urine Blood NEGATIVE (NEGATIVE) 06/25/19 10:32 Urine Nitrite (Reflex) NEGATIVE (NEGATIVE) 06/25/19 10:32 Urine Bilirubin SMALL (NEGATIVE) H 06/25/19 10:32 Urine Urobilinogen 4.0 mg/dL (<2.0) H 06/25/19 10:32 Leukocyte Esterase Rfl NEGATIVE (NEGATIVE) 06/25/19 10:32 Urine RBC (Auto) 2 /HPF 06/25/19 10:32 Urine Bacteria (Auto) TRACE /HPF 06/25/19 10:32 Urine WBC (Reflex) 17 /HPF 06/25/19 10:32 Squamous Epi Cells Auto 1 /HPF 06/25/19 10:32 Urine Mucus (Auto) MANY /LPF 06/25/19 10:32 Urine Ascorbic Acid 40 (NEGATIVE) H 06/25/19 10:32 POC Stool Occult Blood POSITIVE (NEGATIVE) 06/25/19 15:16 Stool for White Cells Cancelled 06/25/19 15:15 Stool for White Cells MANY H 06/25/19 15:15 Stool Calprotectin 1083 ug/g (0-120) H 06/25/19 15:15 Stl C. Difficile GDH Ag NEGATIVE (NEGATIVE) 06/25/19 15:15 Stl C.difficile Tox A&B NEGATIVE (NEGATIVE) 06/25/19 15:15 HIV 1&2 Antibody NEGATIVE (NEGATIVE) 06/25/19 20:07 Influenza A (Rapid) NEGATIVE (NEGATIVE) 06/25/19 20:03 Influenza B (Rapid) NEGATIVE (NEGATIVE) 06/25/19 20:03 Blood Type O POSITIVE 06/25/19 10:32 Antibody Screen NEGATIVE 06/25/19 10:32 Impressions: Abdomen/Pelvis CT 06/25/19 13:15 IMPRESSION: Moderate wall thickening throughout the length of the colon with mild adjacent inflammatory changes and fluid filled lumen. No free air or fluid collection identified. Stroke Is this a Stroke Patient?: No Acute Heart Failure - Is this a Heart Failure Patient?: No
== END 2019-06-28 15:18 | disposition home or self-care (01) | DRG 387 ==
LOC: ER 10:07 → EH 18:07 → 4N 21:20
PROVIDERS: ADMIT Internal Medicine; ATTEND Internal Medicine
DX: K51.911 Ulcerative colitis, unspecified with rectal bleeding (principal); E86.0 Dehydration; D72.825 Bandemia; Z87.891 Personal history of nicotine dependence
CPT/HCPCS: 36415; 71045; 74177; 80048; 80053; 81001; 82306; 82607; 82728; 82746; 83036; 83540; 83550; 83605; 83690; 83735; 83993; 84443; 85025; 85027; 85045; 85652; 86140; 86701; 86850; 86900; 86901; 87040; 87045; 87086; 87177; 87205; 87324; 87449; 87804; 89055; 96361; 96365; 96375; 96376; 99285; J0696; J1335; J2270; J2405; J2920; J3480; J3490; J7030; J7120

== ENCOUNTER 2019-09-28 11:53 | Inpatient (IN) | payer OTHER ==
[2019-09-28] MEDS ORDERED: NORMAL SALINE 1000 ML 1,000 ML IV ONE ×3 (12:16→16:23)
[2019-09-28] MEDS ORDERED: ONDANSETRON HCL INJ/PF 4 MG/2 ML SDV IV ONE (12:16)
[2019-09-28] MEDS ORDERED: MORPHINE SULFATE 10 MG/ML INJ IV ONE ×2 (12:16→16:23)
[2019-09-28 12:46] LABS: ABSOLUTE EOSINOPHILS # (AUTO) 0.2 10^3/uL (0.0-0.6); ABSOLUTE LYMPHOCYTES (AUTO) 1.8 10^3/uL (0.5-4.7); ABSOLUTE MONOCYTES (AUTO) 1.7 10^3/uL (0.1-1.4); ABSOLUTE NEUT (AUTO) 11.2 10^3/uL (1.7-8.2); BASOPHILS % (AUTO) 0.1 % (0-2); EOSINOPHILS % (AUTO) 1.2 % (0-6); HEMOGLOBIN 11.2 g/dL (13.5-17.0); MEAN CORPUSCULAR HEMOGLOBIN 26.8 pg (27.0-33.4); MEAN CORPUSCULAR VOLUME 77 fl (80-97); MONOCYTES % (AUTO) 11.2 % (3-13); PLATELET COUNT 744 10^3/uL (150-450); RED BLOOD COUNT 4.18 10^6/uL (4.35-5.55); RED CELL DISTRIBUTION WIDTH 14.5 % (11.5-14.0); SEGMENTED NEUTROPHILS % (AUTO) 75.5 % (42-78); TOTAL CELLS COUNTED % (AUTO) 100 %; WHITE BLOOD COUNT 14.9 10^3/uL (4.0-10.5)
[2019-09-28 13:08] LABS: ALBUMIN 2.8 g/dL (3.5-5.0); ALKALINE PHOSPHATASE 83 U/L (38-126); ANION GAP 7 (5-19); ASPARTATE AMINO TRANSFERASE 24 U/L (17-59); BILIRUBIN,TOTAL 0.9 mg/dL (0.2-1.3); BLOOD UREA NITROGEN 12 mg/dL (7-20); CARBON DIOXIDE 35 mmol/L (22-30); CHLORIDE 87 mmol/L (98-107); GLUCOSE 131 mg/dL (75-110); TOTAL PROTEIN 5.9 g/dL (6.3-8.2)
[2019-09-28 13:13] LABS: POTASSIUM 2.9 mmol/L (3.6-5.0)
[2019-09-28] MEDS ORDERED: POTASSIUM CHLORIDE 20 MEQ PACKET PO ONE (13:14)
--- NOTE | 2019-09-28 14:51 | ER Document Report ---
ED General - General Chief Complaint: Rectal Bleeding Stated Complaint: RECTAL BLEEDING Time Seen by Provider: 09/28/19 12:08 Primary Care Provider: SUJATA BEE [Primary Care Provider] - Follow up as needed Mode of Arrival: Ambulatory Information source: Patient TRAVEL OUTSIDE OF THE [place] IN LAST 30 DAYS: No - HPI Notes: Patient complains of rectal bleeding and feeling weak. He states he has had this for over 7 days. He states one time before he had rectal bleeding and was admitted to the hospital. He states no colonoscopy was done and that he was never told what caused the problem. He states currently he is having some pain around his rectum as well as in the abdomen. It is intermittent and crampy. Nothing makes it better or worse. It radiates throughout the lower abdomen. It is moderate to severe. He states that he has 7-8 stools per day and they are all red and bloody. He has had nausea but no vomiting. He has had decreased appetite. - Related Data Allergies/Adverse Reactions: No Known Allergies Allergy (Verified 09/28/19 12:50) Past Medical History - General Information source: Patient - Social History Smoking Status: Never Smoker Frequency of alcohol use: None Drug Abuse: None Family History: Reviewed & Not Pertinent Patient has homicidal ideation: No Past Surgical History: Reports: Hx Abdominal Surgery - hernia repair, Hx Inguinal Hernia - left, repaired. Review of Systems - Review of Systems Constitutional: Malaise, Weakness. denies: Chills, Fever Cardiovascular: denies: Chest pain, Palpitations Respiratory: denies: Cough, Short of breath -: Yes All other systems reviewed and negative Physical Exam - Vital signs Vitals: Temp Pulse Resp BP Pulse Ox 98.6 F 151 H 16 112/64 95 09/28/19 12:00 09/28/19 12:00 09/28/19 12:00 09/28/19 12:00 09/28/19 12:00 Interpretation: Tachycardic - General General appearance: Appears well, Alert - HEENT Head: Normocephalic, Atraumatic Eyes: Normal Pupils: PERRL - Respiratory Respiratory status: No respiratory distress Chest status: Nontender Breath sounds: Normal Chest palpation: Normal - Cardiovascular Rhythm: Regular Heart sounds: Normal auscultation Murmur: No - Abdominal Inspection: Normal Distension: No distension Bowel sounds: Normal Tenderness: Tender - Diffusely Organomegaly: No organomegaly - Rectal Tenderness: Yes Stool: Heme positive, Bloody Hemorrhoids: External - Back Back: Normal, Nontender - Extremities General upper extremity: Normal inspection, Nontender, Normal color, Normal ROM, Normal temperature General lower extremity: Normal inspection, Nontender, Normal color, Normal ROM, Normal temperature, Normal weight bearing. No: Tracy's sign - Neurological Neuro grossly intact: Yes Cognition: Normal Orientation: AAOx4 [place] Coma Scale Eye Opening: Spontaneous Jason Coma Scale Verbal: Oriented [place] Coma Scale Motor: Obeys Commands [place] Coma Scale Total: 15 Speech: Normal Motor strength normal: LUE, RUE, LLE, RLE Sensory: Normal - Psychological Associated symptoms: Normal affect, Normal mood - Skin Skin Temperature: Warm Skin Moisture: Dry Skin Color: Normal Course - Re-evaluation Re-evalutation: 09/28/19 15:56 Patient comes in with obvious dehydration and rectal bleeding. Scan is consistent with an inflammatory bowel disease most likely ulcerative colitis. I have discussed the case with GI who recommend that the patient come in and possibly be scoped. Patient also is hyponatremic and hypokalemic. These will be replaced. - Vital Signs Vital signs: Temp Pulse Resp BP Pulse Ox 98.6 F 151 H 13 129/79 H 92 09/28/19 12:35 09/28/19 12:00 09/28/19 13:01 09/28/19 13:00 09/28/19 13:01 - Laboratory Result Diagrams: 09/28/19 12:23 09/28/19 12:23 Laboratory results interpreted by me: 09/28/19 09/28/19 12:23 12:23 WBC 14.9 H RBC 4.18 L Hgb 11.2 L Hct 32.0 L MCV 77 L MCH 26.8 L RDW 14.5 H Plt Count 744 H Lymph % (Auto) 12.0 L Absolute Neuts (auto) 11.2 H Absolute Monos (auto) 1.7 H Sodium 129.2 L Potassium 2.9 L* Chloride 87 L Carbon Dioxide 35 H Glucose 131 H Calcium 8.0 L Total Protein 5.9 L Albumin 2.8 L - Diagnostic Test Radiology reviewed: Image reviewed, Reports reviewed Discharge - Discharge Clinical Impression: Inflammatory bowel disease, Dehydration, Colitis, Hypokalemia, Hyponatremia Diarrhea Qualifiers: Diarrhea type: unspecified type Qualified Code(s): R19.7 - Diarrhea, unspecified Condition: Serious Disposition: ADMITTED INPATIENT Admitting Provider: Baldemar (Hospitalist) Unit Admitted: Telemetry [facility]errals: [facility] [[facility] - Follow up as needed
--- NOTE | 2019-09-28 15:45 | RADIOLOGY REPORT (SQ) ---
EXAM DESCRIPTION: CT ABD/PELVIS WITH IV ONLY IMAGES COMPLETED DATE/TIME: 09/28/2019 3:26 pm REASON FOR STUDY: abdominal pain/rectal bleeding COMPARISON: 06/25/2019 TECHNIQUE: CT scan of the abdomen and pelvis performed using helical scanning technique with dynamic intravenous contrast injection. No oral contrast. Images reviewed with lung, soft tissue, and bone windows. Reconstructed coronal and sagittal MPR images reviewed. Delayed images for evaluation of the urinary system also acquired. All images stored on PACS. All CT scanners at this facility use dose modulation, iterative reconstruction, and/or weight based d osing when appropriate to reduce radiation dose to as low as reasonably achievable (ALARA). [facility]: Dose Right [facility]: CareDose [facility]: Dose Right [facility]: Teradose 4D [facility]: Ortiva Wireless CONTRAST TYPE AND DOSE: contrast/concentration: Isovue 350.00 mg/ml; Total Contrast Delivered: 89.0 ml; Total Saline Delivered: 70.0 ml RENAL FUNCTION: Creatinine 0.7 RADIATION DOSE: CT Rad equipment meets quality standard of care and radiation dose reduction techniq ues were employed. CTDIvol: 7.9 - 11.2 mGy. DLP: 1138 mGy-cm.. LIMITATIONS: None. FINDINGS: LOWER CHEST: No significant findings. No nodules or infiltrates. LIVER: Normal size. No masses. No dilated ducts. SPLEEN: Normal size. No focal lesions. PANCREAS: No masses. No significant calcifications. No adjacent inflammation or peripancreatic fluid collections. Pancreatic duct not dilated. GALLBLADDER: No identified stones by CT criteria. No inflammatory changes to suggest cholecystitis. ADRENAL GLANDS: No significant masses or asymmetry. RIGHT KIDNEY AND URETER: No solid masses. No significant calcifications. No hydronephrosis or hyd roureter. LEFT KIDNEY AND URETER: No solid masses. No significant calcifications. No hydronephrosis or hydr oureter. AORTA AND VESSELS: No aneurysm. No dissection. Renal arteries, SMA, celiac without stenosis. RETROPERITONEUM: No retroperitoneal adenopathy, hemorrhage or masses. BOWEL AND PERITONEAL CAVITY: Mild diffuse wall thickening throughout the visualized colon. There is associated mesenteric engorgement. Gas fluid levels throughout the distal colon seen which can be se en with diarrheal illness or cathartic use. No evidence of intestinal obstruction. No focal bowel w all thickening. No free intraperitoneal fluid or gas. APPENDIX: Not identified. PELVIS: No mass. No free fluid. Normal bladder. ABDOMINAL WALL: No masses. No hernias. BONES: No significant or acute findings. OTHER: No other significant finding. IMPRESSION: 1. Diffuse colonic wall thickening with associated mesenteric engorgement. Findings mi ldly improved from prior CT and compatible with colitis, of which inflammatory bowel disease should b e considered. Recommend GI consultation if not previously performed. 2. No other evidence of acute intra-abdominal/pelvic process. TECHNICAL DOCUMENTATION: JOB ID: [id number] Quality ID # [id number]: Final reports with documentation of one or more dose reduction techniques (e.g., Au tomated exposure control, adjustment of the mA and/or kV according to patient size, use of iterative reconstruction technique) 2010 [employer]- All Rights Reserved Reading location - IP/workstation name: [email or web address]
[2019-09-28] MEDS ORDERED: METHYLPREDNISOLONE INJ 125 MG/2 ML SDV IV ONE (15:50)
[2019-09-28] MEDS ORDERED: ONDANSETRON HCL INJ/PF 4 MG/2 ML SDV IV PRN (16:33)
[2019-09-28] MEDS ORDERED: NORMAL SALINE 1000 ML 1,000 ML IV PRN (16:33)
[2019-09-28] MEDS ORDERED: ACETAMINOPHEN 325 MG TABLET PO PRN (16:39)
[2019-09-28] MEDS ORDERED: NORMAL SALINE 1000 ML 1,000 ML with POTASSIUM CHLORIDE 20 MEQ IV PRN ×2 (16:45)
--- NOTE | 2019-09-28 17:05 | PDOC H&P ---
History of Present Illness Admission Date/PCP: 09/28/19 16:[facility] Patient complains of: Hematochezia History of Present Illness: JAKOB GARCIA is a 24 year old male with recent history of colitis, who presents to the hospital with complaints of hematochezia for the past 2 to 3 weeks. Patient initially had an episode in June of this year of lower GI bleed at which time he was diagnosed and treated with antibiotics for suspected infectious colitis. He completed his antibiotic regimen at home and never followed up with GI. His GI bleed resolved however resumed about 3 weeks ago. Patient notes red blood in stool which is occasionally dark. And sometimes with bright in color. Has had increased frequency of bowel movements which are always bloody and now having up to 7-8 bloody bowel movements per day. He denies any prior history of inflammatory bowel disease and has never had a colonoscopy. He also admits to abdominal pain located in his lower abdomen mostly in his left lower quadrant. Denies any dysuria or polyuria. Admits to some nausea and loss of appetite. Past Medical History Past Medical History: Colitis Past Surgical History Past Surgical History: Reports: Other - Hernia repair Social History Information Source: Patient Occupation: Works in the [employer] Smoking Status: Never Smoker Frequency of Alcohol Use: Occasional Hx Recreational Drug Use: No Drugs: None - Advance Directive Resuscitation Status: Full Code Family History Family History: Other - Denies family history of inflammatory bowel disease or lower GI bleed early age. Parental Family History Reviewed: Yes Children Family History Reviewed: NA Sibling(s) Family History Reviewed.: NA Medication/Allergy Home Medications: Cholecalciferol (Vitamin D3) [Vitamin D3] 2,000 unit PO DAILY 30 Days #30 tablet 06/28/19 Ferrous Sulfate [Feosol 325 mg Tablet] 325 mg PO DAILY 30 Days #30 tab 06/28/19 Levofloxacin [Levaquin 500 mg Tablet] 500 mg PO DAILY 5 Days #5 tablet 06/28/19 Magnesium Oxide [Mag-Oxide Magnesium] 400 mg PO DAILY 7 Days #14 tablet 06/28/19 Metronidazole [Flagyl 500 mg Tablet] 500 mg PO Q8 5 Days #15 tablet 06/28/19 Potassium Chloride 40 meq PO DAILY 7 Days #14 tablet.er 06/28/19 Prednisone [Deltasone 5 mg Tablet] 5 mg PO DAILY 74 Days #148 tablet 06/28/19 Allergies/Adverse Reactions: No Known Allergies Allergy (Verified 09/28/19 12:50) Review of Systems Constitutional: PRESENT: fatigue. ABSENT: chills Eyes: ABSENT: visual disturbances Ears: ABSENT: hearing changes Nose, Mouth, and Throat: ABSENT: headache(s) Cardiovascular: ABSENT: chest pain Respiratory: ABSENT: cough, dyspnea Gastrointestinal: PRESENT: abdominal pain, diarrhea, nausea. ABSENT: melena, vomiting Genitourinary: ABSENT: difficulty urinating, hematuria Musculoskeletal: ABSENT: muscle weakness Integumentary: PRESENT: diaphoresis. ABSENT: lesions Neurological: PRESENT: dizziness Endocrine: ABSENT: polyuria Hematologic/Lymphatic: ABSENT: easy bleeding Physical Exam Vital Signs: Temp Pulse Resp BP Pulse Ox 98.6 F 151 H 13 129/79 H 92 09/28/19 12:35 09/28/19 12:00 09/28/19 13:01 09/28/19 13:00 09/28/19 13:01 Intake & Output 09/27/19 09/28/19 09/29/19 06:59 06:59 06:59 Intake Total 1667 Balance 1667 Weight 78.7 kg General appearance: PRESENT: no acute distress, cooperative, other - Appears very fatigued Head exam: PRESENT: normocephalic Mouth exam: PRESENT: dry mucosa, other - No aphthous ulcers Respiratory exam: PRESENT: clear to auscultation elijah, unlabored Cardiovascular exam: PRESENT: +S1, +S2, tachycardia. ABSENT: irregular rhythm GI/Abdominal exam: PRESENT: guarding - Voluntary guarding in bilateral lower quadrants but worse in his LLQ, soft, tenderness. ABSENT: rebound, rigid Rectal exam: PRESENT: heme (+) stool Extremities exam: ABSENT: pedal edema, +1 edema, +2 edema Neurological exam: PRESENT: alert, awake, oriented to person, oriented to place, oriented to time Psychiatric exam: ABSENT: agitated, anxious Focused psych exam: ABSENT: pressured speech Skin exam: ABSENT: jaundice, rash, vesicles Results Laboratory Results: 09/28/19 12:23 09/28/19 12:23 09/28/19 09/28/19 09/28/19 12:23 12:23 12:23 WBC 14.9 H RBC 4.18 L Hgb 11.2 L Hct 32.0 L MCV 77 L MCH 26.8 L MCHC 35.0 RDW 14.5 H Plt Count 744 H Seg Neutrophils % 75.5 Sodium 129.2 L Potassium 2.9 L* Chloride 87 L Carbon Dioxide 35 H Anion Gap 7 BUN 12 Creatinine 0.70 Est GFR ( Amer) > 60 Glucose 131 H Calcium 8.0 L Total Bilirubin 0.9 AST 24 Alkaline Phosphatase 83 Total Protein 5.9 L Albumin 2.8 L Blood Type O POSITIVE Antibody Screen NEGATIVE Impressions: Abdomen/Pelvis CT 09/28/19 13:37 IMPRESSION: 1. Diffuse colonic wall thickening with associated mesenteric engorgement. Findings mildly improved from prior CT and compatible with colitis, of which inflammatory bowel disease should be considered. Recommend GI consultation if not previously performed. 2. No other evidence of acute intra-abdominal/pelvic process. Assessment and Plan - Diagnosis (1) Lower GI bleed Is this a current diagnosis for this admission?: Yes Plan: Several episodes of hematochezia daily. Patient has some hemodynamic compromise given significant sinus tachycardia into the 140s on admission indicating significant hypovolemia. Monitor showing sinus tachycardia. Will admit patient to IMCU for close observation Patient has received several boluses of normal saline. Will continue on continuous normal saline with potassium supplements through the night. GI has been consulted and will plan for colonoscopy tomorrow. Will start bowel prep with 2 L GoLYTELY as GI recommends gentle bowel prep. C lear liquid diet for now but n.p.o. past midnight. Monitor CBC closely (2) Colitis Is this a current diagnosis for this admission?: Yes Plan: CT abdomen pelvis showing diffuse colitis. Given age, iron deficiency, I am highly suspicious of inflammatory bowel disease with acute flare as etiology. Less suspicion for infectious etiology but will still cover with Flagyl. I will start patient on Solu-Medrol. Received a dose in the ER already. Check ESR and CRP. Colonoscopy planned for tomorrow. Pain control with Tylenol and morphine IV as needed. (3) Hypokalemia due to excessive gastrointestinal loss of potassium Is this a current diagnosis for this admission?: Yes Plan: Ongoing diarrhea. Replete aggressively. Will give [id number] of KCl and also run on continuous IV fluids with KCl supplement. Check magnesium level and give mag supplements as well. (4) Hyponatremia Is this a current diagnosis for this admission?: Yes Plan: Likely secondary to hypovolemia. Monitor response to normal saline. (5) Iron deficiency anemia Qualifiers: Iron deficiency anemia type: chronic blood loss Qualified Code(s): D50.0 - Iron deficiency anemia secondary to blood loss (chronic) Is this a current diagnosis for this admission?: Yes Plan: Iron studies on recent hospitalization revealing iron deficiency as well as anemia of chronic disease. Acute on chronic blood loss. Will monitor CBC closely. Patient has been typed and screened. Will transfuse if hemoglobin drops below 9 in setting of active GI bleeding. - Time Time Spent with patient: 35 or more minutes
[2019-09-28] MEDS ORDERED: MAGNESIUM SULFATE/D5W 1 GM/100 ML RTUPB IV ONE (17:30)
[2019-09-28] MEDS ORDERED: PEG 3350/NA SULF,BICARB,CL/KCL 4000 ML PO ONE (18:00)
--- NOTE | 2019-09-28 18:51 | PDOC CONSULTATION ---
Consultation Consult Date: 09/28/19 Provider Consulted: CORINE RYAN Consult reason:: GI bleeding History of Present Illness Admission Date/PCP: 09/28/19 16:14 [facility] History of Present Illness: JAKOB GARCIA is a 24 year old male I am asked to see this patient for having multiple bowel movements per day patient was seen in the past and was felt to have an infectious colitis presented to ED today abnormal CT scan probably more consistent with ulcerative colitis will need admission prep for colonoscopy tomorrow has had multiple bowel movements daily, patient has not had a colonoscopy in the past he will need to be started on steroids Past Surgical History Past Surgical History: Reports: Other - Hernia repair Social History Smoking Status: Never Smoker Frequency of Alcohol Use: Occasional Hx Recreational Drug Use: No Drugs: None - Advance Directive Resuscitation Status: Full Code Family History Family History: Other - Denies family history of inflammatory bowel disease or lower GI bleed early age. Parental Family History Reviewed: Yes Children Family History Reviewed: Unknown Sibling(s) Family History Reviewed.: Unknown Medication/Allergy Home Medications: Hydrocodone/Acetaminophen [[place] 5-325 mg Tabs (6 Tab/ER Disp)] 1 tab PO Q6HP PRN MDD filled 09/22 for 5 day supply 09/28/19 Prednisone [Deltasone 20 mg Tablet] 60 mg PO DAILY MDD filled 09/22 for 7 day supply 09/28/19 Allergies/Adverse Reactions: No Known Allergies Allergy (Verified 09/28/19 12:50) Review of Systems Constitutional: ABSENT: fever(s), headache(s), night sweats, weakness Eyes: ABSENT: visual disturbances Ears: ABSENT: hearing changes Nose, Mouth, and Throat: ABSENT: mouth pain, sore throat Cardiovascular: ABSENT: chest pain, palpitations Respiratory: ABSENT: dyspnea, hemoptysis Gastrointestinal: PRESENT: diarrhea, hematochezia. ABSENT: hematemesis Genitourinary: ABSENT: dysuria, hematuria Integumentary: ABSENT: pruritus Neurological: ABSENT: syncope, tremor(s), vertigo, weakness Endocrine: ABSENT: polydipsia, polyphagia Hematologic/Lymphatic: ABSENT: easy bruising Physical Exam Vital Signs: Temp Pulse Resp BP Pulse Ox 98.1 F 151 H 16 141/76 H 95 09/28/19 18:30 09/28/19 12:00 09/28/19 18:01 09/28/19 18:00 09/28/19 18:01 Intake & Output 09/27/19 09/28/19 09/29/19 06:59 06:59 06:59 Intake Total 1999 Balance 1999 Weight 78.7 kg General appearance: PRESENT: mild distress, well-developed, well-nourished Head exam: PRESENT: atraumatic, normocephalic Eye exam: PRESENT: EOMI, PERRLA. ABSENT: scleral icterus Mouth exam: PRESENT: moist, neck supple Neck exam: ABSENT: meningismus, tenderness, thyromegaly Respiratory exam: ABSENT: tachypnea, unlabored, wheezes Cardiovascular exam: PRESENT: RRR, +S1 GI/Abdominal exam: PRESENT: normal bowel sounds, soft. ABSENT: Gunter's sign, rebound, rigid Extremities exam: ABSENT: joint swelling Musculoskeletal exam: ABSENT: full ROM Neurological exam: PRESENT: awake, oriented to person, CN II-XII grossly intact Skin exam: ABSENT: mottled, normal color, pallor, urticaria, vesicles Results Laboratory Results: 09/28/19 12:23 09/28/19 12:23 09/28/19 09/28/19 09/28/19 12:23 12:23 12:23 WBC 14.9 H RBC 4.18 L Hgb 11.2 L Hct 32.0 L MCV 77 L MCH 26.8 L MCHC 35.0 RDW 14.5 H Plt Count 744 H Seg Neutrophils % 75.5 Sodium 129.2 L Potassium 2.9 L* Chloride 87 L Carbon Dioxide 35 H Anion Gap 7 BUN 12 Creatinine 0.70 Est GFR ( Amer) > 60 Glucose 131 H Calcium 8.0 L Magnesium Total Bilirubin 0.9 AST 24 Alkaline Phosphatase 83 C-Reactive Protein Total Protein 5.9 L Albumin 2.8 L Blood Type O POSITIVE Antibody Screen NEGATIVE 09/28/19 09/28/19 12:23 12:23 WBC RBC Hgb Hct MCV MCH MCHC RDW Plt Count Seg Neutrophils % Sodium Potassium Chloride Carbon Dioxide Anion Gap BUN Creatinine Est GFR ( Amer) Glucose Calcium Magnesium 2.1 Total Bilirubin AST Alkaline Phosphatase C-Reactive Protein 193.9 H Total Protein Albumin Blood Type Antibody Screen Impressions: Abdomen/Pelvis CT 09/28/19 13:37 IMPRESSION: 1. Diffuse colonic wall thickening with associated mesenteric engorgement. Findings mildly improved from prior CT and compatible with colitis, of which inflammatory bowel disease should be considered. Recommend GI consultation if not previously performed. 2. No other evidence of acute intra-abdominal/pelvic process. Assessment & Plan - Diagnosis (1) Colitis Is this a current diagnosis for this admission?: Yes Plan: Likely has ulcerative colitis start Solu medrol will need a colonoscopy Risks, benefits and alternatives are explained to the patient in detail further recommendations to follow - Time Time Spent: 50 to 70 Minutes
[2019-09-28] MEDS: POTASSI CL 20 MEQ/50 ML RIDER 20 MEQ/50 ML RTUPB IV SCH ×3 (19:12→23:42)
[2019-09-28] MEDS: MORPHINE SULFATE 10 MG/ML INJ IV PRN ×2 (19:27→23:35)
[2019-09-28] MEDS: METRONIDAZOLE 500 MG/NS RTU 500 MG/100 ML RTUPB IV SCH ×2 (20:12→23:43)
[2019-09-28] MEDS: POTASSI CL 20 MEQ/NS 1L 1000 ML IV PRN (20:25)
[2019-09-28 22:05] LABS: HEMATOCRIT 28.4 % (37.9-51.0); HEMOGLOBIN 9.6 g/dL (13.5-17.0); MEAN CORPUSCULAR HEMOGLOBIN 25.9 pg (27.0-33.4); MEAN CORPUSCULAR HGB CONC 33.7 g/dL (32.0-36.0); MEAN CORPUSCULAR VOLUME 77 fl (80-97); PLATELET COUNT 616 10^3/uL (150-450); RED BLOOD COUNT 3.69 10^6/uL (4.35-5.55); RED CELL DISTRIBUTION WIDTH 14.1 % (11.5-14.0); WHITE BLOOD COUNT 13.1 10^3/uL (4.0-10.5)
[2019-09-29] MEDS: MORPHINE SULFATE 10 MG/ML INJ IV PRN ×3 (04:41→18:51)
[2019-09-29] MEDS: METRONIDAZOLE 500 MG/NS RTU 500 MG/100 ML RTUPB IV SCH ×3 (05:34→17:14)
[2019-09-29 06:27] LABS: ABSOLUTE LYMPHOCYTES (AUTO) 0.9 10^3/uL (0.5-4.7); ABSOLUTE MONOCYTES (AUTO) 0.8 10^3/uL (0.1-1.4); ABSOLUTE NEUT (AUTO) 13.2 10^3/uL (1.7-8.2); BASOPHILS % (AUTO) 0.1 % (0-2); HEMATOCRIT 26.7 % (37.9-51.0); HEMOGLOBIN 9.2 g/dL (13.5-17.0); LYMPHOCYTES % (AUTO) 6.3 % (13-45); MEAN CORPUSCULAR HEMOGLOBIN 26.3 pg (27.0-33.4); MEAN CORPUSCULAR HGB CONC 34.6 g/dL (32.0-36.0); MEAN CORPUSCULAR VOLUME 76 fl (80-97); MONOCYTES % (AUTO) 5.6 % (3-13); PLATELET COUNT 575 10^3/uL (150-450); RED BLOOD COUNT 3.52 10^6/uL (4.35-5.55); RED CELL DISTRIBUTION WIDTH 14.2 % (11.5-14.0); TOTAL CELLS COUNTED % (AUTO) 100 %
[2019-09-29 06:28] LABS: INTERNATIONAL RATION (INR) 1.23; PROTHROMBIN TIME 15.6 SEC (11.4-15.4)
[2019-09-29 06:29] LABS: PARTIAL THROMBOPLASTIN TIME 35.6 SEC (23.5-35.8)
[2019-09-29] MEDS: POTASSI CL 20 MEQ/NS 1L 1000 ML IV PRN ×2 (06:43→17:19)
[2019-09-29 06:46] LABS: ANION GAP 7 (5-19); BLOOD UREA NITROGEN 10 mg/dL (7-20); CALCIUM 7.4 mg/dL (8.4-10.2); CARBON DIOXIDE 27 mmol/L (22-30); CHLORIDE 98 mmol/L (98-107); GLUCOSE 139 mg/dL (75-110)
[2019-09-29 06:54] LABS: POTASSIUM 3.9 mmol/L (3.6-5.0)
[2019-09-29] MEDS ORDERED: METHYLPREDNISOLONE INJ 40 MG/1 ML SDV IV SCH ×2 (10:00→22:00)
--- NOTE | 2019-09-29 11:05 | PDOC PROGRESS REPORT ---
Subjective Progress Note for:: 09/29/19 Subjective:: Denies much improvement in abdominal pain and symptoms. Still had some bloody stool yesterday. Denies any fever or chills. Feels very weak and fatigued. Reason For Visit: LOWER GI BLEED Physical Exam Vital Signs: Temp Pulse Resp BP Pulse Ox 97.9 F 97 17 130/71 H 94 09/29/19 03:22 09/29/19 06:42 09/29/19 03:22 09/29/19 03:22 09/29/19 03:22 Intake & Output 09/28/19 09/29/19 09/30/19 06:59 06:59 06:59 Intake Total 3543 7 Balance 3543 7 Weight 82.6 kg General appearance: PRESENT: no acute distress, cooperative Neck exam: ABSENT: JVD Respiratory exam: PRESENT: clear to auscultation elijah, unlabored. ABSENT: tachypnea, wheezes Cardiovascular exam: PRESENT: RRR, +S1, +S2. ABSENT: tachycardia GI/Abdominal exam: PRESENT: guarding - Voluntary guarding in lower quadrants., soft, tenderness. ABSENT: distended, firm, rebound, rigid Neurological exam: PRESENT: alert, awake, oriented to person, oriented to place, oriented to time, oriented to situation Results Laboratory Results: 09/29/19 05:50 09/29/19 05:50 09/28/19 09/28/19 09/28/19 12:23 12:23 12:23 WBC 14.9 H RBC 4.18 L Hgb 11.2 L Hct 32.0 L MCV 77 L MCH 26.8 L MCHC 35.0 RDW 14.5 H Plt Count 744 H Seg Neutrophils % 75.5 Sodium 129.2 L Potassium 2.9 L* Chloride 87 L Carbon Dioxide 35 H Anion Gap 7 BUN 12 Creatinine 0.70 Est GFR ( Amer) > 60 Glucose 131 H Calcium 8.0 L Magnesium Total Bilirubin 0.9 AST 24 Alkaline Phosphatase 83 C-Reactive Protein Total Protein 5.9 L Albumin 2.8 L Blood Type O POSITIVE Antibody Screen NEGATIVE 09/28/19 09/28/19 09/28/19 12:23 12:23 21:51 WBC 13.1 H RBC 3.69 L Hgb 9.6 L Hct 28.4 L MCV 77 L MCH 25.9 L MCHC 33.7 RDW 14.1 H Plt Count 616 H Seg Neutrophils % Sodium Potassium Chloride Carbon Dioxide Anion Gap BUN Creatinine Est GFR ( Amer) Glucose Calcium Magnesium 2.1 Total Bilirubin AST Alkaline Phosphatase C-Reactive Protein 193.9 H Total Protein Albumin Blood Type Antibody Screen 09/29/19 09/29/19 05:50 05:50 WBC 15.0 H RBC 3.52 L Hgb 9.2 L Hct 26.7 L MCV 76 L MCH 26.3 L MCHC 34.6 RDW 14.2 H Plt Count 575 H Seg Neutrophils % 88.0 H Sodium 131.9 L Potassium 3.9 D Chloride 98 Carbon Dioxide 27 Anion Gap 7 BUN 10 Creatinine 0.54 Est GFR ( Amer) > 60 Glucose 139 H Calcium 7.4 L Magnesium 2.3 Total Bilirubin AST Alkaline Phosphatase C-Reactive Protein Total Protein Albumin Blood Type Antibody Screen Impressions: Abdomen/Pelvis CT 09/28/19 13:37 IMPRESSION: 1. Diffuse colonic wall thickening with associated mesenteric eng orgement. Findings mildly improved from prior CT and compatible with colitis, of which inflammatory bowel disease should be considered. Recommend GI consultation if not previously performed. 2. No other evidence of acute intra-abdominal/pelvic process. Assessment and Plan - Diagnosis (1) Lower GI bleed Is this a current diagnosis for this admission?: Yes Plan: Continue IV fluids. GI is following and plan is for colonoscopy today. Continue to monitor CBC closely (2) Colitis Is this a current diagnosis for this admission?: Yes Plan: CT abdomen pelvis showing diffuse colitis. Given age, iron deficiency, I am highly suspicious of inflammatory bowel disease with acute flare as etiology. Less suspicion for infectious etiology but will still continue to cover with Flagyl. Continue Solu-Medrol. ESR and CRP elevated. Colonoscopy planned for today. Pain control with Tylenol and morphine IV as needed. (3) Hypokalemia due to excessive gastrointestinal loss of potassium Is this a current diagnosis for this admission?: Yes Plan: Ongoing diarrhea. Adequately repleted. Continue KCl-NS. Hypocalcemia noted. Will check albumin level and replete if corrected level is still low.. (4) Hyponatremia Is this a current diagnosis for this admission?: Yes Plan: Likely secondary to hypovolemia from frequent bloody diarrhea. Responding nicely to normal saline infusion. Continue to monitor metabolic panel. (5) Iron deficiency anemia Qualifiers: Iron deficiency anemia type: chronic blood loss Qualified Code(s): D50.0 - Iron deficiency anemia secondary to blood loss (chronic) Is this a current diagnosis for this admission?: Yes Plan: Iron studies on recent hospitalization revealing iron deficiency as well as anemia of chronic disease. Acute on chronic blood loss. Hemoglobin dropped to about 9.2 after receiving lots of IV fluid boluses but seems to be holding steady now. - Time Time Spent with patient: Less than 15 minutes
[2019-09-29] MEDS ORDERED: PROPOFOL INJ 200 MG/20 ML VIAL IV ONE (14:54)
[2019-09-29] MEDS ORDERED: FENTANYL CITRATE INJ/PF 100 MCG/2 ML AMPUL ONE (14:54)
[2019-09-29] MEDS ORDERED: EPINEPHRINE INJ 1 MG/10 ML DISP.SYRIN ONE (15:06)
--- NOTE | 2019-09-29 15:34 | Operative Report ---
Operative Report DATE OF SURGERY: 09/29/19 Operative Report: The risks, benefits and alternatives of the procedure including the risk of bleeding, perforation requiring surgery have been explained to the patient in detail and informed consent has been obtained. Patient is taken back to the operating room and placed in the left, lateral decubital position. Timeout was called. Propofol medications administered. Rectal examination is performed. An Olympus videoscope was introduced into the patient's rectum and carefully under carbon dioxide insufflation advanced all the way to the cecum the cecum was identified by the usual anatomical landmarks including the ileocecal valve as well as appendiceal office. Photodocumentation is obtained. Scope was then sequentially pulled back via the various segments of the colon including the ascending colon, backslash, transverse colon, splenic flexure, descending colon and finally in to the rectosigmoid portions of the colon. Retroflexion maneuver is performed. PREOPERATIVE DIAGNOSIS: GI bleeding with abnormal CT scan POSTOPERATIVE DIAGNOSIS: Ulcerative colitis from rectum all the way to cecum. Moderately severe status post biopsy OPERATION: Colonoscopy with biopsy SURGEON: CORINE RYAN ANESTHESIA: LMAC TISSUE REMOVED OR ALTERED: As noted above. COMPLICATIONS: None. ESTIMATED BLOOD LOSS: None. INTRAOPERATIVE FINDINGS: As noted above. PROCEDURE: Patient tolerated the procedure well. He is sent back to his room in good condition. Continue his steroids for right now. He will be a good candidate for biological therapy. He needs the QuantiFERON gold TB test. Also check hepatitis profile. We will try and get his biological therapy started as an outpatient Clear liquids Advance as tolerated
[2019-09-29] MEDS ORDERED: BUPIVACAINE HCL 0.25 % INJ/PF (2.5 MG/1 ML) 30 ML VIAL ONE (16:14)
[2019-09-29] MEDS: METHYLPREDNISOLONE INJ 40 MG/1 ML SDV IV SCH (22:06)
[2019-09-29] MEDS: HYDROCORTISONE 100 MG/60 ML PR SCH (22:06)
[2019-09-30] MEDS: METRONIDAZOLE 500 MG/NS RTU 500 MG/100 ML RTUPB IV SCH ×5 (00:21→23:21)
[2019-09-30] MEDS: MORPHINE SULFATE 10 MG/ML INJ IV PRN ×2 (00:32→06:48)
[2019-09-30] MEDS: POTASSI CL 20 MEQ/NS 1L 1000 ML IV PRN ×2 (02:06→14:01)
[2019-09-30] MEDS: KETOROLAC TROMETHAMINE INJ/PF 30 MG/1 ML SDV IV PRN ×2 (04:13→14:00)
[2019-09-30 05:40] LABS: ABSOLUTE LYMPHOCYTES (AUTO) 1.1 10^3/uL (0.5-4.7); ABSOLUTE MONOCYTES (AUTO) 1.3 10^3/uL (0.1-1.4); ABSOLUTE NEUT (AUTO) 11.8 10^3/uL (1.7-8.2); BASOPHILS % (AUTO) 0.1 % (0-2); EOSINOPHILS % (AUTO) 0.1 % (0-6); HEMATOCRIT 26.5 % (37.9-51.0); HEMOGLOBIN 8.9 g/dL (13.5-17.0); LYMPHOCYTES % (AUTO) 7.6 % (13-45); MEAN CORPUSCULAR HEMOGLOBIN 25.7 pg (27.0-33.4); MEAN CORPUSCULAR HGB CONC 33.7 g/dL (32.0-36.0); MEAN CORPUSCULAR VOLUME 76 fl (80-97); MONOCYTES % (AUTO) 9.3 % (3-13); PLATELET COUNT 689 10^3/uL (150-450); RED BLOOD COUNT 3.47 10^6/uL (4.35-5.55); RED CELL DISTRIBUTION WIDTH 14.5 % (11.5-14.0); SEGMENTED NEUTROPHILS % (AUTO) 82.9 % (42-78); TOTAL CELLS COUNTED % (AUTO) 100 %; WHITE BLOOD COUNT 14.2 10^3/uL (4.0-10.5)
[2019-09-30 06:07] LABS: ALBUMIN 2.3 g/dL (3.5-5.0); BLOOD UREA NITROGEN 9 mg/dL (7-20); C-REACTIVE PROTEIN 80.2 mg/L (<10.0); CALCIUM 7.5 mg/dL (8.4-10.2); GLUCOSE 137 mg/dL (75-110); POTASSIUM 3.8 mmol/L (3.6-5.0)
[2019-09-30 06:10] LABS: ANION GAP 5 (5-19); CARBON DIOXIDE 28 mmol/L (22-30); CHLORIDE 100 mmol/L (98-107)
[2019-09-30 06:19] LABS: ERYTHROCYTE SEDIMENTATION RATE 8 mm/hr (0-15)
[2019-09-30] MEDS: METHYLPREDNISOLONE INJ 40 MG/1 ML SDV IV SCH ×3 (06:48→21:10)
[2019-09-30] MEDS: HYDROCORTISONE 100 MG/60 ML PR SCH ×2 (10:33→21:10)
--- NOTE | 2019-09-30 15:11 | PDOC PROGRESS REPORT ---
Subjective Progress Note for:: 09/30/19 Subjective:: Underwent colonoscopy yesterday which revealed findings suggestive of ulcerative colitis. Patient still having some rectal bleeding but states the abdominal pain has im proved. Reason For Visit: LOWER GI BLEED Physical Exam Vital Signs: Temp Pulse Resp BP Pulse Ox 98.2 F 94 16 137/81 H 95 09/30/19 08:41 09/30/19 08:41 09/30/19 08:41 09/30/19 08:41 09/30/19 08:41 Intake & Output 09/29/19 09/30/19 10/01/19 06:59 06:59 06:59 Intake Total 3543 3806 1100 Output Total 0 Balance 3543 3806 1100 Weight 82.6 kg 84.4 kg 84.4 kg General appearance: PRESENT: no acute distress, cooperative Neck exam: ABSENT: JVD Respiratory exam: PRESENT: clear to auscultation elijah, unlabored. ABSENT: tachypnea, wheezes Cardiovascular exam: PRESENT: RRR, +S1, +S2. ABSENT: tachycardia GI/Abdominal exam: PRESENT: normal bowel sounds, soft, tenderness. ABSENT: distended, firm, guarding, rebound, rigid Neurological exam: PRESENT: alert, awake, oriented to person, oriented to place, oriented to time, oriented to situation Results Laboratory Results: 09/30/19 05:15 09/30/19 05:15 09/30/19 09/30/19 05:15 05:15 WBC 14.2 H RBC 3.47 L Hgb 8.9 L Hct 26.5 L MCV 76 L MCH 25.7 L MCHC 33.7 RDW 14.5 H Plt Count 689 H Seg Neutrophils % 82.9 H Sodium 132.8 L Potassium 3.8 Chloride 100 Carbon Dioxide 28 Anion Gap 5 BUN 9 Creatinine 0.62 Est GFR ( Amer) > 60 Glucose 137 H Calcium 7.5 L Magnesium 2.3 C-Reactive Protein 80.2 H Albumin 2.3 L Impressions: Abdomen/Pelvis CT 09/28/19 13:37 IMPRESSION: 1. Diffuse colonic wall thickening with associated mesenteric engorgement. Findings mildly improved from prior CT and compatible with colitis, of which inflammatory bowel disease should be considered. Recommend GI consultation if not previously performed. 2. No other evidence of acute intra-abdominal/pelvic process. Assessment and Plan - Diagnosis (1) Exacerbation of ulcerative colitis with rectal bleeding Is this a current diagnosis for this admission?: Yes Plan: Underwent colonoscopy yesterday which revealed ulcerative colitis from rectum all the way to cecum throughout colon. Solu-Medrol IV 30 mg every 8 hours. Have started patient also on hydrocortisone enemas. Plan is to start patient on biologic agent in the outpatient setting-check hepatitis viral panel and QuantiFERON gold Check stool culture, C. difficile. We will discontinue Flagyl if C. difficile is negative. Dietitian consulted Patient education performed. (2) Hypokalemia due to excessive gastrointestinal loss of potassium Is this a current diagnosis for this admission?: Yes Plan: Ongoing diarrhea. Adequately repleted. Corrected calcium level today is normal. (3) Hyponatremia Is this a current diagnosis for this admission?: Yes Plan: Has responded nicely to normal saline. Will discontinue normal saline at this time. Encourage p.o. fluid intake. (4) Iron deficiency anemia Qualifiers: Iron deficiency anemia type: chronic blood loss Qualified Code(s): D50.0 - Iron deficiency anemia secondary to blood loss (chronic) Is this a current diagnosis for this admission?: Yes Plan: Iron studies on recent hospitalization revealing iron deficiency as well as anemia of chronic disease. Acute on chronic blood loss. Hemoglobin dropped to about 9.2 after receiving lots of IV fluid boluses but seems to be holding steady now. - Time Time Spent with patient: Less than 15 minutes
[2019-09-30] MEDS ORDERED: ONDANSETRON HCL INJ/PF 4 MG/2 ML SDV IV PRN (15:30)
--- NOTE | 2019-09-30 18:46 | PDOC PROGRESS REPORT ---
Subjective Progress Note for:: 09/30/19 Subjective:: biopsies are pending and clinically improved patient had colonoscopy yesterday and findings are suggestive of ulcerative colitis C. diff is pending electrolytes improved, no significant increase in WBC hepatitis panel is pending patient's ESR is back to normal on current therapy worthwhile to continue flagyl for at least 1 week even if negative to cover anaerobic organisms that could cause a superinfection in the setting of mucosal inflammation Reason For Visit: LOWER GI BLEED Physical Exam Vital Signs: Temp Pulse Resp BP Pulse Ox 98.6 F 112 H 14 130/73 H 96 09/30/19 11:59 09/30/19 14:00 09/30/19 11:59 09/30/19 11:59 09/30/19 11:59 Intake & Output 09/29/19 09/30/19 10/01/19 06:59 06:59 06:59 Intake Total 3543 3806 1520 Output Total 0 Balance 3543 3806 1520 Weight 82.6 kg 84.4 kg 84.4 kg General appearance: PRESENT: mild distress, well-developed, well-nourished Head exam: PRESENT: atraumatic, normocephalic Eye exam: PRESENT: EOMI, nystagmus, periorbital swelling, PERRLA, scleral icterus Mouth exam: PRESENT: moist, neck supple Neck exam: ABSENT: meningismus, tenderness, thyromegaly Respiratory exam: ABSENT: rhonchi Cardiovascular exam: PRESENT: RRR, +S1, +S2 GI/Abdominal exam: ABSENT: Gunter's sign, normal bowel sounds, organolmegaly, rebound Extremities exam: ABSENT: joint swelling Musculoskeletal exam: PRESENT: full ROM Neurological exam: PRESENT: alert, awake, CN II-XII grossly intact Skin exam: ABSENT: mottled, normal color, pallor, petechiae, urticaria, vesicles Results Laboratory Results: 09/30/19 05:15 09/30/19 05:15 09/30/19 09/30/19 05:15 05:15 WBC 14.2 H RBC 3.47 L Hgb 8.9 L Hct 26.5 L MCV 76 L MCH 25.7 L MCHC 33.7 RDW 14.5 H Plt Count 689 H Seg Neutrophils % 82.9 H Sodium 132.8 L Potassium 3.8 Chloride 100 Carbon Dioxide 28 Anion Gap 5 BUN 9 Creatinine 0.62 Est GFR ( Amer) > 60 Glucose 137 H Calcium 7.5 L Magnesium 2.3 C-Reactive Protein 80.2 H Albumin 2.3 L Impressions: Abdomen/Pelvis CT 09/28/19 13:37 IMPRESSION: 1. Diffuse colonic wall thickening with associated mesenteric engorgement. Findings mildly improved from prior CT and compatible with colitis, of which inflammatory bowel disease should be considered. Recommend GI consultation if not previously performed. 2. No other evidence of acute intra-abdominal/pelvic process. Assessment & Plan - Diagnosis (1) Colitis Is this a current diagnosis for this admission?: Yes Plan: wait on biopsies will need biological therapy hepatitis panel is pending, and quantiferon gold TB test likely could candidate for Humira pending biopsies further recommendations to follow clinically improved since admission - Time Time Spent with patient: 15-24 minutes
[2019-09-30 19:36] LABS: C DIFFICILE GDH POSITIVE (NEGATIVE)
[2019-10-01] MEDS: KETOROLAC TROMETHAMINE INJ/PF 30 MG/1 ML SDV IV PRN (03:50)
[2019-10-01] MEDS: METHYLPREDNISOLONE INJ 40 MG/1 ML SDV IV SCH (05:15)
[2019-10-01] MEDS: METRONIDAZOLE 500 MG/NS RTU 500 MG/100 ML RTUPB IV SCH (05:15)
[2019-10-01 06:36] LABS: HEPATITS B SURFACE ANTIGEN Negative (Negative)
[2019-10-01 07:03] LABS: HEPATITIS B CORE AB TOT Negative (Negative); HEPATITIS B SURFACE AB QUAL Non Reactive (.); HEPATITIS C VIRUS ANTIBODY <0.1 s/co ratio (0.0-0.9)
[2019-10-01] MEDS ORDERED: VANCOMYCIN HCL INJ 500 MG VIAL PO SCH (07:30)
[2019-10-01 08:07] LABS: ABSOLUTE MONOCYTES (AUTO) 0.9 10^3/uL (0.1-1.4); ABSOLUTE NEUT (AUTO) 10.9 10^3/uL (1.7-8.2); BASOPHILS % (AUTO) 0.1 % (0-2); HEMATOCRIT 25.7 % (37.9-51.0); HEMOGLOBIN 8.5 g/dL (13.5-17.0); LYMPHOCYTES % (AUTO) 7.8 % (13-45); MEAN CORPUSCULAR HEMOGLOBIN 25.6 pg (27.0-33.4); MEAN CORPUSCULAR HGB CONC 33.2 g/dL (32.0-36.0); MEAN CORPUSCULAR VOLUME 77 fl (80-97); MONOCYTES % (AUTO) 6.8 % (3-13); PLATELET COUNT 637 10^3/uL (150-450); RED BLOOD COUNT 3.32 10^6/uL (4.35-5.55); RED CELL DISTRIBUTION WIDTH 14.5 % (11.5-14.0); SEGMENTED NEUTROPHILS % (AUTO) 85.3 % (42-78); TOTAL CELLS COUNTED % (AUTO) 100 %; WHITE BLOOD COUNT 12.8 10^3/uL (4.0-10.5)
[2019-10-01 08:27] LABS: BLOOD UREA NITROGEN 10 mg/dL (7-20); CALCIUM 7.4 mg/dL (8.4-10.2); CARBON DIOXIDE 27 mmol/L (22-30); CHLORIDE 102 mmol/L (98-107); GLUCOSE 123 mg/dL (75-110); POTASSIUM 3.6 mmol/L (3.6-5.0)
[2019-10-01 08:45] LABS: ANION GAP 5 (5-19)
[2019-10-01 10:41] VITALS: BP 136/76
--- NOTE | 2019-10-01 10:42 | PDOC DISCHARGE SUMMARY ---
Impression - Admit/DC Date/PCP Admission Date/Primary Care Provider: 09/28/19 16:14 [facility] Discharge Date: 10/01/19 - Discharge Diagnosis (1) Exacerbation of ulcerative colitis with rectal bleeding Is this a current diagnosis for this admission?: Yes (2) C. difficile colitis Is this a current diagnosis for this admission?: Yes (3) Hypokalemia due to excessive gastrointestinal loss of potassium Is this a current diagnosis for this admission?: Yes (4) Hyponatremia Is this a current diagnosis for this admission?: Yes (5) Iron deficiency anemia Is this a current diagnosis for this admission?: Yes - Additional Information Resuscitation Status: Full Code Discharge Diet: Other (Comments) - Low FODMAP diet Discharge Activity: Slowly Increase Activity Referrals: CORINE RYAN MD [ACTIVE STAFF] - (they MUST have a referral from the [facility]- otherwise ins will not pay) [facility] [Primary Care Provider] - Follow up as needed Prescriptions: Hydrocortisone [Colocort Enema 100 mg/60 ml Enema] 100 mg NM Q12 14 Days enema Prednisone [Deltasone 20 mg Tablet] 60 mg PO DAILY 20 Days Naproxen [Naprosyn 250 mg Tablet] 250 mg PO BIDP PRN #10 tablet PRN Reason: For Pain Vancomycin HCl [Vancocin Inj 500 mg Vial] 125 mg PO QID 10 Days vial Ondansetron [Zofran Odt 4 mg Tablet] 1 - 2 tab PO Q4HP PRN #10 tab.rapdis PRN Reason: For Nausea/Vomiting Home Medications: Hydrocodone/Acetaminophen [Lockhart 5-325 mg Tabs (6 Tab/ER Disp)] 1 tab PO Q6HP PRN MDD filled 09/22 for 5 day supply 09/28/19 Hydrocortisone [Colocort Enema 100 mg/60 ml Enema] 100 mg NM Q12 14 Days enema 10/01/19 Naproxen [Naprosyn 250 mg Tablet] 250 mg PO BIDP PRN #10 tablet 10/01/19 Ondansetron [Zofran Odt 4 mg Tablet] 1 - 2 tab PO Q4HP PRN #10 tab.rapdis 10/01/19 Prednisone [Deltasone 20 mg Tablet] 60 mg PO DAILY 20 Days 10/01/19 Vancomycin HCl [Vancocin Inj 500 mg Vial] 125 mg PO QID 10 Days vial 10/01/19 History of Present Illiness History of Present Illness: JAKOB GARCIA is a 24 year old male with recent history of colitis, who presents to the hospital with complaints of hematochezia for the past 2 to 3 weeks. Patient initially had an episode in June of this year of lower GI bleed at which time he was diagnosed and treated with antibiotics for suspected infectious colitis. He completed his antibiotic regimen at home and never followed up with GI. His GI bleed resolved however resumed about 3 weeks ago. Patient notes red blood in stool which is occasionally dark. And sometimes with bright in color. Has had increased frequency of bowel movements which are always bloody and now having up to 7-8 bloody bowel movements per day. He denies any prior history of inflammatory bowel disease and has never had a colonoscopy. He also admits to abdominal pain located in his lower abdomen mostly in his left lower quadrant. Denies any dysuria or polyuria. Admits to some nausea and loss of appetite. Hospital Course Hospital Course: Patient was admitted for evaluation of lower GI bleeding with bloody diarrhea frequently. On presentation he was significantly tachycardic with sinus tachycardia up to 150s. He appeared very dehydrated and very fatigued and very significant abdominal pain. Abdominal/pelvis CT had revealed diffuse colonic wall inflammation suggestive of colitis. Blood work revealed leukocytosis, elevated CRP and ESR. Patient was started on IV Flagyl as well as Solu-Medrol IV with suspicion of inflammatory bowel disease and possible infectious colitis. Gastroenterology was consulted and colonoscopy was performed which revealed significant active ulcerative colitis involving the whole of large intestine from rectum to cecum. Biopsy was taken which revealed active chronic colitis with crypt distortion which is consistent with ulcerative colitis. Patient was treated with IV Solu-Medrol and hydrocortisone enemas. C. difficile test was positive which is not an uncommon finding that patients with ulcerative colitis have superimposed C. difficile colitis. Patient was also started on treatment with vancomycin p.o. Patient likely has iron deficiency anemia secondary to chronic GI bleeding lower. With initiation of treatments, patient reports significant improvement of symptoms. He states that abdominal pain has significantly improved and that his last few bowel movements have barely had any blood in them. Still having frequent diarrhea but able to tolerate diet easily, denies any lightheadedness or dizziness on ambulating, reports significant improvement of abdominal pain, ESR and CRP are significantly improved from admission and patient states he would like to go home today. I am discharging patient on high-dose prednisone, hydrocortisone enema, vancomycin with strict instructions to follow-up with Dr. Ryan and his PCP to start prednisone taper after 2 to 3 weeks if deemed appropriate at that time. Patient has received education about his new diagnosis of ulcerative colitis as well as dietary education. Physical Exam Vital Signs: Temp Pulse Resp BP Pulse Ox 98.5 F 84 17 141/80 H 95 10/01/19 03:43 10/01/19 07:00 10/01/19 03:43 10/01/19 03:43 10/01/19 03:43 Intake & Output 09/30/19 10/01/19 10/02/19 06:59 06:59 06:59 Intake Total 3806 2585 Output Total 0 Balance 3806 2585 Weight 84.4 kg 85.1 kg General appearance: PRESENT: no acute distress, cooperative Neck exam: ABSENT: JVD Respiratory exam: PRESENT: unlabored GI/Abdominal exam: PRESENT: soft, tenderness. ABSENT: distended, firm, guarding, rebound, rigid Neurological exam: PRESENT: alert, awake Results Laboratory Results: WBC 12.8 10^3/uL (4.0-10.5) H 10/01/19 07:40 RBC 3.32 10^6/uL (4.35-5.55) L 10/01/19 07:40 Hgb 8.5 g/dL (13.5-17.0) L 10/01/19 07:40 Hct 25.7 % (37.9-51.0) L 10/01/19 07:40 MCV 77 fl (80-97) L 10/01/19 07:40 MCH 25.6 pg (27.0-33.4) L 10/01/19 07:40 MCHC 33.2 g/dL (32.0-36.0) 10/01/19 07:40 RDW 14.5 % (11.5-14.0) H 10/01/19 07:40 Plt Count 637 10^3/uL (150-450) H 10/01/19 07:40 Lymph % (Auto) 7.8 % (13-45) L 10/01/19 07:40 [place] % (Auto) 6.8 % (3-13) 10/01/19 07:40 Eos % (Auto) 0.0 % (0-6) 10/01/19 07:40 Baso % (Auto) 0.1 % (0-2) 10/01/19 07:40 Absolute Neuts (auto) 10.9 10^3/uL (1.7-8.2) H 10/01/19 07:40 Absolute Lymphs (auto) 1.0 10^3/uL (0.5-4.7) 10/01/19 07:40 Absolute Monos (auto) 0.9 10^3/uL (0.1-1.4) 10/01/19 07:40 Absolute Eos (auto) 0.0 10^3/uL (0.0-0.6) 10/01/19 07:40 Absolute Basos (auto) 0.0 10^3/uL (0.0-0.2) 10/01/19 07:40 Seg Neutrophils % 85.3 % (42-78) H 10/01/19 07:40 ESR 8 mm/hr (0-15) 09/30/19 05:15 PT 15.6 SEC (11.4-15.4) H 09/29/19 05:50 INR 1.23 09/29/19 05:50 APTT 35.6 SEC (23.5-35.8) 09/29/19 05:50 Sodium 133.6 mmol/L (137-145) L 10/01/19 07:40 Potassium 3.6 mmol/L (3.6-5.0) 10/01/19 07:40 Chloride 102 mmol/L (98-107) 10/01/19 07:40 Carbon Dioxide 27 mmol/L (22-30) 10/01/19 07:40 Anion Gap 5 (5-19) 10/01/19 07:40 BUN 10 mg/dL (7-20) 10/01/19 07:40 Creatinine 0.57 mg/dL (0.52-1.25) 10/01/19 07:40 Est GFR ( Amer) > 60 (>60) 10/01/19 07:40 Est GFR (MDRD) Non-Af > 60 (>60) 10/01/19 07:40 Glucose 123 mg/dL (75-110) H 10/01/19 07:40 Calcium 7.4 mg/dL (8.4-10.2) L 10/01/19 07:40 Magnesium 2.3 mg/dL (1.6-2.3) 10/01/19 07:40 Total Bilirubin 0.9 mg/dL (0.2-1.3) 09/28/19 12:23 Direct Bilirubin 0.0 mg/dL (0.0-0.4) 09/28/19 12:23 Neonat Total Bilirubin Not Reportable 09/28/19 12:23 Neonat Direct Bilirubin Not Reportable 09/28/19 12:23 Neonat Indirect Bili Not Reportable 09/28/19 12:23 AST 24 U/L (17-59) 09/28/19 12:23 ALT 25 U/L (<50) 09/28/19 12:23 Alkaline Phosphatase 83 U/L (38-126) 09/28/19 12:23 C-Reactive Protein 59.0 mg/L (<10.0) H 10/01/19 07:40 Total Protein 5.9 g/dL (6.3-8.2) L 09/28/19 12:23 Albumin 2.3 g/dL (3.5-5.0) L 09/30/19 05:15 POC Gastric Occult Bld POSITIVE (NEGATIVE) 09/28/19 12:09 Stl C. Difficile GDH Ag POSITIVE (NEGATIVE) 09/30/19 14:27 Stl C.difficile Tox A&B NEGATIVE (NEGATIVE) 09/30/19 14:27 Stl C.difficile Tox PCR POSITIVE (NEGATIVE) 09/30/19 14:27 Hepatitis A IgM Ab Negative (Negative) 09/30/19 05:15 Hep Bs Antigen Negative (Negative) 09/30/19 05:15 Hep Bs Antibody Non Reactive (.) 09/30/19 05:15 Hep B Core Total Ab Negative (Negative) 09/30/19 05:15 Hep B Core IgM Ab Negative (Negative) 09/30/19 05:15 Hepatitis C Antibody <0.1 s/co ratio (0.0-0.9) 09/30/19 05:15 Blood Type O POSITIVE 09/28/19 12:23 Antibody Screen NEGATIVE 09/28/19 12:23 Impressions: Abdomen/Pelvis CT 09/28/19 13:37 IMPRESSION: 1. Diffuse colonic wall thickening with associated mesenteric engorgement. Findings mildly improved from prior CT and compatible with colitis, of which inflammatory bowel disease should be considered. Recommend GI consultation if not previously performed. 2. No other evidence of acute intra-abdominal/pelvic process. Plan Time Spent: Greater than 30 Minutes Stroke Is this a Stroke Patient?: No Acute Heart Failure - Is this a Heart Failure Patient?: No
== END 2019-10-01 12:08 | disposition home or self-care (01) | DRG 386 ==
LOC: ER 11:53 → EH 16:14 → 3W 18:55
PROVIDERS: ADMIT Internal Medicine; ATTEND Internal Medicine
PROC: 0DBF8ZX Excision of Right Large Intestine, Via Natural or Artificial Opening Endoscopic, Diagnostic (ICD-10-PCS; principal; 2019-09-29 15:00)
DX: K51.911 Ulcerative colitis, unspecified with rectal bleeding (principal); E87.1 Hypo-osmolality and hyponatremia; D50.0 Iron deficiency anemia secondary to blood loss (chronic); E87.6 Hypokalemia; A04.72 Enterocolitis due to Clostridium difficile, not specified as recurrent; D72.829 Elevated white blood cell count, unspecified; E86.0 Dehydration
CPT/HCPCS: 36415; 45380; 74177; 80048; 80053; 80074; 811; 82040; 82271; 83735; 85025; 85610; 85652; 85730; 86140; 86480; 86704; 86706; 86850; 86900; 86901; 87045; 87205; 87324; 87449; 87493; 88305; 96361; 96374; 96375; 99285; J0171; J1885; J2270; J2405; J2704; J2920; J2930; J3010; J3370; J3475; J3480; J3490; J7030